=== PATIENT | male | born 1950 | race Caucasian/White ===

== ENCOUNTER 2019-03-17 08:55 | Emergency (ER) | payer MEDICARE, OTHER ==
[~2019-03-17] VITALS: Ht 177.8 cm; Wt 88.5 kg
--- OUTSIDE RECORDS SUMMARY | ~2019-03-17 | XMS | Encounter Summary ---
Demographics + + + | Address | [address] | | | [place] [address] | + + + | Home Phone | | + + + | Preferred Language | Unknown | + + + | Marital Status | | + + + | Restorationist Affiliation | [id number] | + + + | Race | Unknown | + + + | Ethnic Group | Unknown | + + + Author + + + | Author | [facility] | | | and [place] | + + + | Organization | [facility] | | | and [place] | + + + | Address | Unknown | + + + | Phone | Unavailable | + + + Support + + +---------+ + | Name | Relationship | Address | Phone | + + +---------+ + | Yonatan Foss | ECON | Unknown | | + + +---------+ + | Kayli Foss | ECON | Unknown | | + + +---------+ + Care Team Providers + +------+ + | Care Extractor Filler Name | Role | Phone | + +------+ + | Jose Segal MD | PCP | | + +------+ + Reason for Visit + + + | Reason | Comments | + + + | Colonoscopy | prep instructions revised | + + + Encounter Details +--------+ + + + + | Date | Type | Department | Care Team | Description | +--------+ + + + + | 02/20/ | Telephone | [facility] | Oswaldo Streeter MD | Colonoscopy (prep | | 2019 | | GASTROENTEROLOGY | [address] [facility] | instructions | | | | [address] [facility] | [place] [address] | revised) | | | | [address] [place], [place] | [place] [address] | | | | | [address] | [phone] | | | | | [phone] | | | +--------+ + + + + Social History + +-------+ +--------+------+ | Tobacco Use | Types | Packs/Day | Years | Date | | | | | Used | | + +-------+ +--------+------+ | Never Smoker | | | | | + +-------+ +--------+------+ + +---+---+---+ | Smokeless Tobacco: | | | | | Never Used | | | | + +---+---+---+ + + +---------+ + | Alcohol Use | Drinks/We | oz/Week | Comments | | | ek | | | + + +---------+ + | No | | | | + + +---------+ + + + + | Sex Assigned at | Date Recorded | | | | + + + | Not on file | | + + + + + + + | Job Start Date | Occupation | Industry | + + + + | Not on file | Not on file | Not on file | + + + + + + + + | Travel History | Travel Start | Travel End | + + + + + + | No recent travel history available. | + + documented as of this encounter Plan of Treatment Not on filedocumented as of this encounter Visit Diagnoses Not on filedocumented in this encounter"
--- OUTSIDE RECORDS SUMMARY | ~2019-03-17 | XMS | Encounter Summary ---
Demographics + + + | [address] | [address] | | | [place] [address] | + + + | Home Phone | | + + + | Preferred Language | Unknown | + + + | Marital Status | Single | + + + | Anabaptist Affiliation | Unknown | + + + | Race | White | + + + | Ethnic Group | Not or | + + + Author + + + | Author | [facility] | + + + | Organization | [facility] | + + + | Address | Unknown | + + + | Phone | Unavailable | + + + Support + + +---------+ + | Name | Relationship | Address | Phone | + + +---------+ + | Kayli Lundy | ECON | Unknown | | + + +---------+ + Care Team Providers + +------+ + | Care Battery Recharger Name | Role | Phone | + +------+ + | No Pcp Per Patient | PCP | Unavailable | + +------+ + Reason for Visit PROC - Dept/Practice Procedure (Routine) +--------+--------+ + + + + | Status | Reason | Specialty | Diagnoses / | Referred By | Referred To | | | | | Procedures | Contact | Contact | +--------+--------+ + + + + | Closed | | Gastroenterol | Diagnoses | [place], | [facility] End[facility] | | | | ogy | GERD | Christopher | [facility] [address] | | | | | (gastroesoph | MD Cassius | [address] | | | | | ageal reflux | [address] | Mailcode: | | | | | disease) | [address] | [facility] | | | | | [facility] | [place], [place] | [facility] | | | | | esophagus | [address] | and Healing, | | | | | GERD and | Phone: | [address] | | | | | [facility] | [phone] | [facility] [place] | | | | | Procedures | Fax: | [address] | | | | | CONSULT TO | [phone] | Phone: | | | | | GENERAL | | [phone] | | | | | SURGERY [place] | | Fax: | | | | | ESOPHAGEAL | | [phone] | | | | | MOTILITY | | | | | | | STUDY | | | | | | | W/INTERP AND | | | | | | | REPORT | | | +--------+--------+ + + + + Encounter Details +--------+ + + + + | Date | Type | Department | Care Team | Description | +--------+ + + + + | 07/20/ | Hospital | Endoscopic | Nurse, [address] | | | 2013 | Encounter | Procedural Unit at | [facility] | | | | | [facility] | Road [place], [place] | | | | | [address] | [address] | | | | | Mailcode: [facility] | | | | | | [facility] | | | | | | and Healing, | | | | | | [address] | | | | | | [place], [place] | | | | | | [address] | | | | | | [phone] | | | +--------+ + + + + Social History + +-------+ +--------+------+ | Tobacco Use | Types | Packs/Day | Years | Date | | | | | Used | | + +-------+ +--------+------+ | Unknown If Ever | | | | | | Smoked | | | | | + +-------+ +--------+------+ + + +---------+ + | Alcohol Use | Drinks/Week | oz/Week | Comments | + + +---------+ + | No [...] + + documented as of this encounter Medications at Time of Discharge + + + +---------+--------+ + | Medication | Sig | Dispensed | Refills | Start | End Date | | | | | | Date | | + + + +---------+--------+ + | aspirin 325 mg | Take 325 mg by mouth | | 0 | | | | oral tablet | once daily. | | | | | + + + +---------+--------+ + | diphenhydrAMINE 25 | Take 25 mg by mouth | | 0 | | | | mg oral capsule | every six hours as | | | | | | | needed. | | | | | + + + +---------+--------+ + documented as of this encounter Plan of Treatment Not on filedocumented as of this encounter Procedures + +--------+ + + + | Procedure Name | Priori | Date/Time | Associated Diagnosis | Comments | | | ty | | | | + +--------+ + + + | ESOPHAGEAL MOTILITY | | 07/20/2014 | | Results for this | | | | 12:00 AM | | procedure are in the | | | | PDT | | results section. | + +--------+ + + + documented in this encounter Results ESOPHAGEAL MOTILITY (07/20/2014 12:00 AM PDT) + + + | Narrative | Performed At | + + + | | | | | | + + + + + | Procedure Note | + + | Cas Faculty - 07/20/2014 1:41 PM PDT | + + documented in this encounter Visit Diagnoses Not on filedocumented in this encounter Administered Medications + +--------+ +------+------+------+ | Medication Order | MAR | Action | Dose | Rate | Site | | | Action | Date | | | | + +--------+ +------+------+------+ | lidocaine (XYLOCAINE) 2 % gel | Given | 07/20/20 | 2 mL | | | | 1 dose, Starting Wed07/20/14 at | | 14 10:32 | | | | | 0843, Until Wed07/20/14 at 1032 | | AM PDT | | | | + +--------+ +------+------+------+ +---+---+ | | | +---+---+ + +-------+ +---+---+---+ | lidocaine (XYLOCAINE) 2 % gel | Given | 07/20/20 | | | | | 1 dose, Starting Wed07/20/14 at | | 14 10:32 | | | | | 0938, Until Wed07/20/14 at 1032 | | AM PDT | | | | + +-------+ +---+---+---+ +---+---+ | | | +---+---+ documented in this encounter"
--- OUTSIDE RECORDS SUMMARY | ~2019-03-17 | XMS | Encounter Summary ---
Demographics + + + | Address | [address] | | | [place] [address] | + + + | Home Phone | | + + + | Preferred Language | Unknown | + + + | Marital Status | | + + + | Yarsanism Affiliation | 1077 | + + + | Race | Unknown | + + + | Ethnic Group | Unknown | + + + Author + + + | Author | [facility] | | | and [place] | + + + | Organization | [facility] | | | and [place] | + + + | Address | Unknown | + + + | Phone | Unavailable | + + + Support + + +---------+ + | Name | Relationship | Address | Phone | + + +---------+ + | Yonatan Foss | ECON | Unknown | | + + +---------+ + | PipoKayli | ECON | Unknown | | + + +---------+ + Care Team Providers + +------+ + | Care Director Service Name | Role | Phone | + +------+ + | Jose Segal MD | PCP | | + +------+ + Reason for Visit Auth/Cert +--------+--------+ + + + + | Status | Reason | Specialty | Diagnoses / | Referred By | Referred To | | | | | Procedures | Contact | Contact | +--------+--------+ + + + + | | | | Diagnoses | | Ferdinand, | | | | | | | Oswaldo MD | | | | | Gastroesopha | | [address] | | | | | geal reflux | | [address] | | | | | disease, | | [place] [address] | | | | | esophagitis | | [place], | | | | | presence not | | [place] [address] | | | | | specified | | Phone: | | | | | Rectal | | [phone] | | | | | bleeding | | Fax: | | | | | Hematemesis, | | [phone] | | | | | presence of | | | | | | | nausea not | | | | | | | specified | | | | | | | Pacemaker | | | | | | | Procedures | | | | | | | CO | | | | | | | ESOPHAGOGAST | | | | | | | RODUODENOSCO | | | | | | | PY TRANSORAL | | | | | | | DIAGNOSTIC | | | | | | | CO EGD | | | | | | | TRANSORAL | | | | | | | BIOPSY | | | | | | | SINGLE/MULTI | | | | | | | PLE CO | | | | | | | COLONOSCOPY | | | | | | | FLX DX | | | | | | | W/COLLJ SPEC | | | | | | | WHEN PFRMD | | | | | | | CO | | | | | | | COLONOSCOPY | | | | | | | W/BIOPSY | | | | | | | SINGLE/MULTI | | | | | | | PLE CO | | | | | | | COLSC FLX | | | | | | | W/RMVL OF | | | | | | | TUMOR POLYP | | | | | | | LESION SNARE | | | | | | | TQ CO | | | | | | | ANESTHESIA | | | | | | | COMBINED | | | | | | | UPPER&LOWER | | | | | | | GI | | | | | | | ENDOSCOPIC | | | | | | | PX EGD | | | | | | | COLONOSCOPY | | | +--------+--------+ + + + + Encounter Details +--------+---------+ + + + | Date | Type | Department | Care Team | Description | +--------+---------+ + + + | 02/21/ | Surgery | [facility] | | EGD | | 2019 | | [facility] | | | | | | [address] | | | | | | [place] | | | | | | [address] | | | | | | [phone] | | | +--------+---------+ + + + Social History + +-------+ [...] + + documented as of this encounter Last Filed Vital Signs + + + + | Vital Sign | Reading | Time Taken | + + + + | Blood Pressure | 144/83 | 02/21/2019 1615 PDT | + + + + | Pulse | 59 | 02/21/2019 1615 PDT | + + + + | Temperature | 36.1 C (97 F) | 02/21/20191517 PDT | + + + + | Respiratory Rate | 14 | 02/21/20191517 PDT | + + + + | Oxygen Saturation | 100% | 02/21/20191614 PDT | + + + + | Inhaled Oxygen | - | - | | Concentration | | | + + + + | Weight | 88 kg (194 lb 0.1 | 02/21/2019 1306 PDT | | | oz) | | + + + + | Height | 177.8 cm (5' 10") | 02/21/2019 1306 PDT | + + + + | Body Mass Index | 27.84 | 02/21/2019 1306 PDT | + + + + documented in this encounter Discharge Instructions Instructions Florinda Albert RN - 02/21/2019 Recovery After Procedural Sedation (Adult) You have been given medicine by vein to make you sleep during your procedure. This may have included both a pain medicine and sleeping medicine. Most of the effects have worn off. But you may still have some drowsiness for the next 6 to 8 hours. Home care Follow these guidelines when you get home: For the next 8 hours, you should be watched by a responsible adult. This person should m jaydon sure your condition is not getting worse. Don't drink any alcoholfor the next [address], operate dangerous machinery,make important business or personal decisions , or sign legal documentsduring the next 24 hours. Note: Your healthcare provider may tell you not to take any medicine by mouth for pain or s leep in the next 4 hours. These medicines may react with the medicines you were given in the hospital. This could cause a much stronger response than usual. Follow-up care Follow up with your healthcare provider if you are not alert and back to your usual level o f activity within 12 hours. When to seek medical advice Call your healthcare provider right away if any of these occur: Drowsiness gets worse Weakness or dizziness gets worse Repeated vomiting You can't be awakened Date Last Reviewed: 08/04/201619990410-8758 [employer]. [address] [place] [address], [place] [address]. All righ ts reserved. This information is not intended as a substitute for professional medical care. Always follow your healthcare professional's instructions. documented in this encounter Medications at Time of Discharge + + + +---------+--------+ + | Medication | Sig | Dispensed | Refills | Start | End Date | | | | | | Date | | + + + +---------+--------+ + | acetaminophen | Take 500-1,000 mg by | | 0 | | | | (TYLENOL) 500 mg | mouth every 6 hours | | | | | | tablet | as needed for Pain. | | | | | + + + +---------+--------+ + | diphenhydrAMINE | Take 25 mg by mouth | | 0 | | | | (BENADRYL) 25 MG | every 6 hours as | | | | | | capsule | needed for | | | | | | | Allergies. | | | | | + + + +---------+--------+ + | fexofenadine | Take 180 mg by mouth | | 0 | | | | (GIRISH) 180 mg | Daily as needed. | | | | | | tablet | | | | | | + + + +---------+--------+ + documented as of this encounter Plan of Treatment Not on filedocumented as of this encounter Procedures + +--------+ + + + | Procedure Name | Priori | Date/Time | Associated Diagnosis | Comments | | | ty | | | | + +--------+ + + + | EGD | Routin | 02/21/2019 | | Results for this | | | e | 14:16 PDT | | procedure are in the | | | | | | results section. | + +--------+ + + + | COLONOSCOPY | Routin | 02/21/2019 | | Results for this | | | e | 14:15 PDT | | procedure are in the | | | | | | results section. | + +--------+ + + + | COLONOSCOPY | | 02/21/2019 | Gastroesophageal | | | | | 13:45 PDT | reflux disease, | | | | | | esophagitis presence | | | | | | not specified | | | | | | Rectal bleeding | | | | | | Hematemesis, | | | | | | presence of nausea | | | | | | not specified | | | | | | Pacemaker | | + +--------+ + + + | EGD | | 02/21/2019 | Gastroesophageal | | | | | 13:45 PDT | reflux disease, | | | | | | esophagitis presence | | | | | | not specified | | | | | | Rectal bleeding | | | | | | Hematemesis, | | | | | | presence of nausea | | | | | | not specified | | | | | | Pacemaker | | + +--------+ + + + | SURGICAL PATHOLOGY | Routin | 02/21/2019 | | Results for this | | EXAM | e | 0:00 PDT | | procedure are in the | | | | | | results section. | + +--------+ + + + documented in this encounter Results EGD (02/21/2019 14:16 PDT) + + | Specimen | + + | | + + + + ---+ | Narrative | Performed At | + + ---+ | | [facility] | | GastroenterologyPatient Name: Alex FossProdeniseure Date: 02/21/2019 | [facility] | | 2:16 PMMRN: [id number] #: [id number] of : | | | 8Admit Type: AmbulatoryAge: 68Room: [facility] 01Gender: MaleNote | | | Status: FinalizedAttending MD: Oswaldo Streeter , | | | MDProcedure: Upper GI | | | endoscopyIndications: Heartburn, Suspected esophageal | | | reflux, HematemesisProviders: Oswaldo Streeter MD, | | | Sylvia Galeas RN, Kamini Bonner | | | Whitney, Organic Section Technical Lead, Rigoberto Jones MD (Anesthesia | | | Staff)Referring | | | MD: Jose Segal MD (Referring | | | MD)Medicines: Monitored Anesthesia | | | CareComplications: No immediate | | | complications.Procedure: Pre-Anesthesia Assessment: - | | | Prior to the procedure, a History and Physical was performed, and | | | patient medications and allergies were reviewed. The patient | | | is competent. The risks and benefits of the procedure and the | | | sedation options and risks were discussed with the patient. | | | All questions were answered and informed consent was | | | obtained. Patient identification and proposed procedure were | | | verified by the physician, the nurse, the anesthesiologist | | | and the radiation therapy technician in the pre-procedure area in the procedure | | | room. Mental Status Examination: alert and oriented. Airway | | | Examination: normal oropharyngeal airway and neck mobility. | | | Respiratory Examination: clear to auscultation. CV | | | Examination: normal. Prophylactic Antibiotics: The patient | | | does not require prophylactic antibiotics. Prior | | | Anticoagulants: The patient has taken no previous anticoagulant or | | | antiplatelet agents. ASA Grade Assessment: III - A patient | | | with severe systemic disease. After reviewing the risks and | | | benefits, the patient was deemed in satisfactory condition to | | | undergo the procedure. The anesthesia plan was to use | | | monitored anesthesia care (MAC). Immediately prior to | | | administration of medications, the patient was re-assessed for | | | adequacy to receive sedatives. The heart rate, respiratory | | | rate, oxygen saturations, blood pressure, adequacy of | | | pulmonary ventilation, and response to care were monitored | | | throughout the procedure. The physical status of the patient | | | was re-assessed after the procedure. After obtaining informed | | | consent, the endoscope was passed under direct vision. | | | Throughout the procedure, the patient's blood pressure, pulse, | | | and oxygen saturations were monitored continuously. The | | | Endoscope was introduced through the mouth, and advanced to | | | the third part of duodenum. The upper GI endoscopy was | | | accomplished without difficulty. The patient tolerated the | | | procedure well.Findings: There were esophageal mucosal changes | | | suggestive of long-segment Bishpo's esophagus present in | | | the middle third of the esophagus and in the lower third of | | | the esophagus. The maximum longitudinal extent of these | | | mucosal changes was 15 cm in length. Mucosa was biopsied with a | | | cold forceps for histology. A total of 5 specimen bottles | | | were sent to pathology. Verification of patient | | | identification for the specimen was done by the physician and | | | nurse using the patient's name and date. Estimated | | | blood loss was minimal. A small hiatal hernia was | | | present. Diffuse mildly erythematous mucosa without bleeding | | | was found in the entire examined stomach. Biopsies were taken | | | with a cold forceps for histology. Verification of patient | | | identification for the specimen was done by the physician and | | | nurse using the patient's name and date. Estimated | | | blood loss was minimal. No other significant abnormalities | | | were identified in a careful examination of the | | | stomach. The cardia and gastric fundus were normal on | | | retroflexion. The examined duodenum was normal. Biopsies were | | | taken with a cold forceps for histology. Verification of | | | patient identification for the specimen was done by the | | | physician and nurse using the patient's name and date. | | | Estimated blood loss was minimal.Impression: - Esophageal | | | mucosal changes suggestive of long-segment Bishop's | | | esophagus. Biopsied. - Small hiatal hernia. - | | | Erythematous mucosa in the stomach. Biopsied. - Normal | | | examined duodenum. Biopsied.Recommendation: - Patient has a | | | contact number available for emergencies. The signs and | | | symptoms of potential delayed complications were discussed with the | | | patient. Return to normal activities tomorrow. Written | | | discharge instructions were provided to the patient. | | | - Resume previous diet. - Continue present | | | medications. - Await pathology results. - Repeat upper | | | endoscopy in 4 months for surveillance based on pathology | | | results. - Return to GI clinic PRN. - Follow an | | | antireflux regimen. - Use Prilosec (omeprazole) 20 mg PO BID | | | for 3 months. - The findings and recommendations were | | | discussed with the patient.Oswaldo Streeter MD02/21/2019 2:45:07 PMThis | | | report has been signed electronically.Number of Addenda: 0Note | | | Initiated On: 02/21/2019 2:16 PMScope In: 2:26:35 PMScope Out: 2:40:51 | | | PM [facility], [address] [place] [address] | | | [place] [address] | | | - Follow an antireflux regimen. | | | - Use Prilosec (omeprazole) 20 mg PO BID for 3 months. | | | - The findings and recommendations were discussed with the patient. | | |Oswaldo Streeter MD | | |02/21/2019 2:45:07 PM | | |This report has been signed electronically. | | |Number of Addenda: 0 | | |Note Initiated On: 02/21/2019 2:16 PM | | |Scope In: 2:26:35 PM | | |Scope Out: 2:40:51 PM | | | [facility], [address] [place] [address] | | | [id number] | | + + ---+ + +---------+ + + | Performing | Address | City/State/Zipcode | Phone Number | | Organization | | | | + +---------+ + + | [facility] | | | | + +---------+ + + COLONOSCOPY (02/21/2019 14:15 PDT) + + | Specimen | + + | | + + + + ---+ | Narrative | Performed At | + + ---+ | | [facility] | | GastroenterologyPatient Name: Alex Woodwardkeanu Date: 02/21/2019 | [place] | | 2:15 PMMRN: [id number] #: [id number] of : | | | 8Admit Type: AmbulatoryAge: 68Room: [facility] 01Gender: MaleNote | | | Status: FinalizedAttending MD: Oswaldo Streeter , | | | MDProcedure: ColonoscopyIndications: | | | HematocheziaProviders: Oswaldo Streeter MD, Sylvia | | | Adal, RN, Kamini Olson, | | | Organic Section Technical Lead, Rigoberto Jones MD (Anesthesia | | | Staff)Referring | | | MD: Jose Segal MD (Referring | | | MD)Medicines: Monitored Anesthesia | | | CareComplications: No immediate | | | complications.Procedure: Pre-Anesthesia Assessment: - | | | Prior to the procedure, a History and Physical was performed, and | | | patient medications and allergies were reviewed. The patient | | | is competent. The risks and benefits of the procedure and the | | | sedation options and risks were discussed with the patient. | | | All questions were answered and informed consent was | | | obtained. Patient identification and proposed procedure were | | | verified by the physician, the nurse, the anesthesiologist | | | and the radiation therapy technician in the pre-procedure area in the procedure | | | room. Mental Status Examination: alert and oriented. Airway | | | Examination: normal oropharyngeal airway and neck mobility. | | | Respiratory Examination: clear to auscultation. CV | | | Examination: normal. Prophylactic Antibiotics: The patient | | | does not require prophylactic antibiotics. Prior | | | Anticoagulants: The patient has taken no previous anticoagulant or | | | antiplatelet agents. ASA Grade Assessment: III - A patient | | | with severe systemic disease. After reviewing the risks and | | | benefits, the patient was deemed in satisfactory condition to | | | undergo the procedure. The anesthesia plan was to use | | | monitored anesthesia care (MAC). Immediately prior to | | | administration of medications, the patient was re-assessed for | | | adequacy to receive sedatives. The heart rate, respiratory | | | rate, oxygen saturations, blood pressure, adequacy of | | | pulmonary ventilation, and response to care were monitored | | | throughout the procedure. The physical status of the patient | | | was re-assessed after the procedure. After I obtained informed | | | consent, the scope was passed under direct vision. | | | Throughout the procedure, the patient's blood pressure, pulse, | | | and oxygen saturations were monitored continuously. The | | | Colonoscope was introduced through the anus and advanced to | | | the cecum, identified by appendiceal orifice and ileocecal | | | valve. The colonoscopy was performed without difficulty. The | | | patient tolerated the procedure well. The quality of the | | | bowel preparation was adequate to identify polyps 6 mm and | | | larger in size.Findings: The perianal and digital rectal | | | examinations were normal. Multiple small and large-mouthed | | | diverticula were found in the entire colon. A 3 mm | | | polyp was found in the cecum. The polyp was sessile. The polyp | | | was removed with a cold biopsy forceps. Resection and | | | retrieval were complete. Verification of patient | | | identification for the specimen was done by the physician and | | | nurse using the patient's name and date. Estimated | | | blood loss was minimal. The exam was otherwise normal | | | throughout the examined colon. Non-bleeding internal | | | hemorrhoids were found during retroflexion. The hemorrhoids | | | were mild and Grade I (internal hemorrhoids that do not | | | prolapse). No additional abnormalities were found on | | | retroflexion. A scattered area of mild melanosis was found in | | | the entire colon.Impression: - Diverticulosis in the entire | | | examined colon. - One 3 mm polyp in the cecum, removed with a | | | cold biopsy forceps. Resected and retrieved. - | | | Non-bleeding internal hemorrhoids.Recommendation: - Patient | | | has a contact number available for emergencies. The signs and | | | symptoms of potential delayed complications were discussed with the | | | patient. Return to normal activities tomorrow. Written | | | discharge instructions were provided to the patient. | | | - High fiber diet. - Continue present medications. - | | | Await pathology results. - Repeat colonoscopy in 3 years | | | because the bowel preparation was suboptimal. - | | | Return to GI office PRN. - The findings and recommendations | | | were discussed with the patient.Oswaldo Streeter MD02/21/2019 3:10:50 | | | PMThis report has been signed electronically.Number of Addenda: 0Note | | | Initiated On: 02/21/2019 2:15 PMScope Withdrawal Time: 0 hours 13 | | | minutes 23 seconds Scope In: 2:46:05 PMScope Out: 3:05:58 PM | | | [facility], [address] [facility], [place], [place] | | | [address] | | | - Repeat colonoscopy in 3 years because the bowel preparation was | | | suboptimal. | | | - Return to GI office PRN. | | | - The findings and recommendations were discussed with the patient. | | |Oswaldo Streeter MD | | |02/21/2019 3:10:50 PM | | |This report has been signed electronically. | | |Number of Addenda: 0 | | |Note Initiated On: 02/21/2019 2:15 PM | | |Scope Withdrawal Time: 0 hours 13 minutes 23 seconds | | |Scope In: 2:46:05 PM | | |Scope Out: 3:05:58 PM | | | [facility], [address] [facility], [place], [place] | | | [address] | | + + ---+ + +---------+ + + | Performing | Address | City/State/Zipcode | Phone Number | | Organization | | | | + +---------+ + + | [facility] | | | | + +---------+ + + Surgical Pathology Exam (02/21/2019 0:00 PDT) + + | Specimen | + + | | + + + + + | Narrative | Performed At | + + + | SPECIMEN(S): A GASTRIC BIOPSY SPECIMEN(S): B DUODENAL BIOPSY | [facility] | | SPECIMEN(S): C ESOPHAGEAL BIOPSY AT 33CM SPECIMEN(S): D ESOPHAGEAL | [facility] | | BIOPSY 31CM SPECIMEN(S): E ESOPHAGEAL BIOPSY AT 29CM SPECIMEN(S): F | | | ESOPHAGEAL BIOPSY AT27CM SPECIMEN(S): G ESOPHAGEAL BIOPSY AT 25CM | | | SPECIMEN(S): H ESOPHAGEAL BIOPSY AT 23CM SPECIMEN(S): I ESOPHAGEAL | | | BIOPSY AT 21CM SPECIMEN(S): J CECAL POLYP SPECIMEN SOURCE: A. | | | GASTRIC BIOPSY B. DUODENAL BIOPSY C. ESOPHAGEAL BIOPSY AT 33CM D. | | | ESOPHAGEAL BIOPSY 31CM E. ESOPHAGEAL BIOPSY AT 29CM F. ESOPHAGEAL | | | BIOPSY AT27CM G. ESOPHAGEAL BIOPSY AT 25CM H. ESOPHAGEAL BIOPSY AT | | | 23CM I. ESOPHAGEAL BIOPSY AT 21CM J. CECAL POLYP CLINICAL | | | HISTORY: EGD, colonoscopy. K21.9 (gastroesophageal reflux disease | | | without esophagitis) K62.5 (hemorrhage of anus and rectum) K92.9 | | | (disease of digestive system, unspecified) Z95.0 (presence of cardiac | | | pacemaker) Rule out H. pylori. Rule out celiac. Rule out | | | Bishop's dysplasia. MICROSCOPIC DESCRIPTION: Histologic | | | sections of all submitted blocks are examined by light microscopy. | | | These findings, together with the gross examination, support the | | | pathologic diagnosis. A. A Helicobacter pylori immunostain is | | | performed on (A1) with appropriate positive and negative controls and | | | is negative for organisms. J[facility] FINAL PATHOLOGIC DIAGNOSIS: | | | A. Gastric biopsy: - Gastric-type mucosa with focal slight chronic | | | inflammation. - Negative for evidence of Helicobacter organisms | | | on immunostained sections. B. Duodenal biopsy: - Benign | | | duodenal mucosa, negative for specific diagnostic abnormality. C. 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 D. | | | Esophageal biopsy at 31 cm: - Glandular mucosa with goblet cell | | | metaplasia, negative for definite dysplasia. E. Esophageal biopsy | | | at 29 cm: - Glandular mucosa with goblet cell metaplasia, negative | | | for definite dysplasia. F. Esophageal biopsy at 27 cm: | | | - Glandular mucosa with goblet cell metaplasia, negative for | | | definite dysplasia. G. Esophageal biopsy at 25 cm: | | | - Gastroesophageal mucosa with goblet cell metaplasia, negative for | | | definite dysplasia. H. Esophageal biopsy at 23 cm: | | | - Gastroesophageal mucosa with goblet cell metaplasia, negative for | | | definite dysplasia. I. Esophageal biopsy at 21 cm: | | | - Benign esophageal mucosa with a tiny fragment of goblet cell | | | metaplasia, negative for dysplasia. J. Cecal polyp, biopsy: | | | - Tubular adenoma (one fragment). JVR:[facility]:[id number] GROSS | | | DESCRIPTION: Ten specimens are received in ten containers, labeled | | | "GB." A. The specimen, labeled "GB, gastric biopsy," is | | | received in formalin and consists of four pink-jackson soft tissue | | | fragments that measure 0.1-0.4 cm in greatest dimension. The specimen | | | is entirely submitted in cassette (A1). B. The specimen, | | | labeled "GB, duodenal biopsy," is received in formalin and consists of | | | six pink-jackson soft tissue fragments that measure 0.2-0.4 cm in | | | greatest dimension. The specimen is entirely submitted in cassette | | | (B1). C. The specimen, labeled "GB, esophageal biopsy at 33 | | | cm," is received in formalin and consists of two pink-jackson soft tissue | | | fragments that measure 0.2-0.3 cm in greatest dimension. The specimen | | | is entirely submitted in cassette (C1). D. The specimen, | | | labeled "GB, esophageal biopsy at 31 cm," is received in formalin and | | | consists of four pink- jackson soft tissue fragments that measure 0.1-0.2 | | | cm in greatest dimension. The specimen is entirely submitted in | | | cassette (D1). E. The specimen, labeled "GB, esophageal biopsy | | | at 29 cm," is received in formalin and consists of three pink-jackson soft | | | tissue fragments that measure 0.2-0.3 cm in greatest dimension. The | | | specimen is entirely submitted in cassette (E1). F. The | | | specimen, labeled "GB, esophageal biopsy at 27 cm," is received in | | | formalin and consists of four pink-jackson soft tissue fragments that | | | measure 0.2-0.3 cm in greatest dimension. The specimen is entirely | | | submitted in cassette (F1). G. The specimen, labeled "GB, | | | esophageal biopsy at 25 cm," is received in formalin and consists of | | | three pink-jackson soft tissue fragments that measure 0.2-0.3 cm in | | | greatest dimension. The specimen is entirely submitted in cassette | | | (G1). H. The specimen, labeled "GB, esophageal biopsy at 23 | | | cm," is received in formalin and consists of four pink-jackson soft tissue | | | fragments that measure 0.1-0.4 cm in greatest dimension. The specimen | | | is entirely submitted in cassette (H1). I. The specimen, | | | labeled "GB, esophageal biopsy at 21 cm," is received in formalin and | | | consists of four pink-jackson soft tissue fragments that measure 0.1-0.3 | | | cm in greatest dimension. The specimen is entirely submitted in | | | cassette (I1). J. The specimen, labeled "GB, cecal polyp," is | | | received in formalin and consists of one pink-jackson soft tissue fragment | | | that measures 0.2 cm in greatest dimension. The specimen is entirely | | | submitted in cassette (J1). JS (under the direct supervision of a | | | pathologist) The Gross Description was prepared using a voice | | | recognition system. The report was reviewed for accuracy; however, | | | sound-alike word errors, addition and/or deletions may occur. If | | | there is any question about this report, please contact Client | | | Services. PERFORMING LABORATORY: The technical component was | | | performed by [facility] [address] | | | (Electronic Assembly: Susan Jimenez MD; IA# [id number]). [facility] | | [facility] | [address] | | | [address] (Electronic Assembly: Mukul Welsh M.D.). | | | Diagnostician: Mukul Welsh MD Pathologist Electronically | | | Signed 02/24/2019 | | + + + + +---------+ + + | Performing | Address | City/State/Zipcode | Phone Number | | Organization | | | | + +---------+ + + | [facility] | | | | | [facility] | | | | + +---------+ + + documented in this encounter Visit Diagnoses + + | Diagnosis | + + | Gastroesophageal reflux disease, esophagitis presence not specified | + + | Rectal bleeding Hemorrhage of rectum and anus | + + | Hematemesis, presence of nausea not specified | + + | Pacemaker Cardiac pacemaker in situ | + + documented in this encounter Admitting Diagnoses + + | Diagnosis | + + | Gastroesophageal reflux disease, esophagitis presence not specified | + + | Rectal bleeding Hemorrhage of rectum and anus | + + | Hematemesis, presence of nausea not specified | + + | Pacemaker Cardiac pacemaker in situ | + + documented in this encounter Administered Medications + +--------+---------+------+------+------+ | Medication Order | MAR | Action | Dose | Rate | Site | | | Action | Date | | | | + +--------+---------+------+------+------+ + +---+ | albuterol 2.5 mg/3 mL nebulizer | | | solution 2.5 mg 2.5 mg, | | | Nebulization, ONCE PRN, Wheezing, | | | Starting Wed02/21/19 at 1526, For | | | 1 dose, Notify anesthesia if | | | patient is wheezing and does not | | | have a history of asthma or COPD | | | or current smoking., | | | Recovery/Phase I | | + +---+ | | | + +---+ | lactated ringers (LR) infusion | | | at 100 mL/hr, Intravenous, | | | CONTINUOUS, Starting e 02/21/19 | | | at 1345, Pre-op | | + +---+ | | | + +---+ + +---------+ +--------+-------+--------+ | lactated ringers (LR) infusion | New Bag | 02/22/20 | 1,000 | 100 | Right | | at 10-100 mL/hr, Intravenous, | | 19 14:12 | mLs | mL/hr | Arm | | CONTINUOUS, Starting e 02/21/19 | | PDT | | | | | at 1345, TKO., Pre-op | | | | | | + +---------+ +--------+-------+--------+ + +---+ | | | + +---+ | ondansetron (ZOFRAN ODT) | | | disintegrating tablet 4 mg 4 mg, | | | Oral, EVERY 6 HOURS PRN, Nausea, | | | Vomiting, Starting 02/21/19 at | | | 1526, First line agent, | | | Post-op/Phase II | | + +---+ | | | + +---+ | ondansetron (ZOFRAN) injection | | | 4 mg 4 mg, Intravenous, ONCE | | | PRN, Nausea, Starting 02/21/19 | | | at 1526, For 1 dose, | | | Recovery/Phase I | | + +---+ | | | + +---+ | ondansetron (ZOFRAN) injection | | | 4 mg 4 mg, Intravenous, EVERY 6 | | | HOURS PRN, Nausea, Vomiting, | | | Starting 02/21/19 at 1526, | | | First line agent. Use PO option | | | unless NPO status or unable to | | | tolerate., Post-op/Phase II | | + +---+ | | | + +---+ documented in this encounter
--- OUTSIDE RECORDS SUMMARY | ~2019-03-17 | XMS | Encounter Summary ---
Demographics + + + | Address | [address] | | | [place] [address] | + + + | Home Phone | | + + + | Preferred Language | Unknown | + + + | Marital Status | Single | + + + | Evangelical Affiliation | 1077 | + + + | Race | Unknown | + + + | Ethnic Group | Unknown | + + + Author + + + | Author | [facility] | + + + | Organization | [facility] | + + + | Address | [...] Team Providers + +------+ + | Care Chemical Plant Technical Director Name | Role | Phone | + +------+ + | Jose Segal MD | PCP | | + +------+ + Reason for Visit + + + | Reason | Comments | + + + | Pacemaker Check | Remote | + + + Encounter Details +--------+ + + + + | Date | Type | Department | Care Team | Description | +--------+ + + + + | 02/15/ | Documentati | [facility] | Wilver Andrew RN | Pacemaker Check | | 2019 | on Only | [facility] | | (Remote) | | | | [address] | | | | | | [place], [place] | | | | | | [address] | | | | | | [phone] | | | +--------+ + + + + Social History + +-------+ +--------+ + | Tobacco Use | Types | Packs/Day | Years | Date | | | | | Used | | + +-------+ +--------+ + | Former Smoker | | 1 | 1 | Quit: 04/01/1969 | + +-------+ +--------+ + + +---+---+---+ | Smokeless Tobacco: | | | | | Never Used | | | | + +---+---+---+ + + | Comments: pipe smoker | + + + + +---------+ + | Alcohol Use | Drinks/We | oz/Week | Comments | | | ek | | | + + +---------+ + | No | 0 | 0.0 | heavy drinker when he was in the [place], quit | | | Standard | | 1973 | | | drinks or | | | | | | | | | | equivalen | | | | | t | | | + + +---------+ + + + + | Sex Assigned at | Date Recorded | | | | + + + | Not on file | | + + + as of this encounter Progress Notes Wilver Andrew RN - 02/15/2019 8:00 AM PDTFormatting of this note may be different from justa mendoza. PACEMAKER REMOTE INTERROGATION REPORT Name: Alex Foss PCP: JOSE SEGAL : 1950 Primary cardiology provider: Harpreet Chow Primary electrophysiology provider: None Device die cutter diamond: Medtronic Device type: Dual chamber Battery Longevity: 6.5 years. RA Pacin.2% RV Pacin.6% INTERROGATION RESULTS: Please see the full interrogation report attached Known history of atrial flutter or atrial fibrillation: Yes Current antithrombotic therapy including: aspirin Mode switches: None. Ventricular high rate episodes: None. Lead function: Lead impedance and threshold value trends have been reviewed and are accepta ble based on most recent evaluation Follow up: The next scheduled interrogation will be in 3 months via remote transmission. Additional comments: None. IMPRESSION: 1. Normal pacemaker function. 2. No atrial fibrillation/flutter noted. 3. No ventricular high rate episodes were noted. Testing reviewed by: Wilver Andrew RN Associated attestation - Amando Chow MD - 02/16/2019 9:19 AM PDTDevice check reviewed , normal device function. Amando Chow MD in this encounter Plan of Treatment +--------+ + + + + | Date | Type | Specialty | Care Team | Description | +--------+ + + + + | 05/17/ | Documentati | Cardiology | | | | 2018 | on Only | | | | +--------+ + + + + as of this encounter Visit Diagnoses + + | Diagnosis | + + | SSS (sick sinus syndrome) (HCC) - Primary | + + | Sinoatrial node dysfunction | + + | Bradycardia | + + | Other specified cardiac dysrhythmias | + + | Paroxysmal atrial fibrillation (HCC) | + + | Atrial fibrillation | + +"
--- OUTSIDE RECORDS SUMMARY | ~2019-03-17 | XMS | Encounter Summary ---
Demographics + + + | Address | [address] | | | [place] [address] | + + + | Home Phone | | + + + | Preferred Language | Unknown | + + + | Marital Status | | + + + | Advent Affiliation | 1077 | + + + | Race | Unknown | + + + | Ethnic Group | Unknown | + + + Author + + + | Author | [facility] | | | and [place] | + + + | Organization | [facility] | | | and [...] Team Providers + +------+ + | Care Professor Of Journalism Name | Role | Phone | + +------+ + | Jose Segal MD | PCP | | + +------+ + Reason for Visit + + + | Reason | Comments | + + + | Colon Cancer | | | Screening | | + + + | Other | possible egd | + + + Evaluate & Treat (Routine) +--------+--------+ + + + + | Status | Reason | Specialty | Diagnoses / | Referred By | Referred To | | | | | Procedures | Contact | Contact | +--------+--------+ + + + + | Closed | | Gastroenterol | Diagnoses | Philipp, | David, | | | | moriah | Encounter | Jose Regalado, | Gregory Higginbotham MD | | | | | for | MD [address] | [address], | | | | | screening | [address] | [address] | | | | | for | [place], | [place], | | | | | malignant | [place] [address] | [place] [address] | | | | | neoplasm of | Phone: | Phone: | | | | | colon | [phone] | [phone] | | | | | Procedures | Fax: | Fax: | | | | | COLONOSCOPY | [phone] | [phone] | +--------+--------+ + + + + Encounter Details +--------+---------+ + + + | Date | Type | Department | Care Team | Description | +--------+---------+ + + + | 01/26/ | Office | [facility] | Oswaldo Streeter MD | Gastroesophageal | | 2019 | Visit | GASTROENTEROLOGY | [address] [facility] | reflux disease, | | | | [address] [facility] [address] | [address] [place] | esophagitis presence | | | | [address], [place] | [place] [address] | not specified | | | | [address] | [phone] | (Primary Dx); Rectal | | | | [phone] | | bleeding; | | | | | | Hematemesis, | | | | | | presence of nausea | | | | | | not specified; | | | | | | Pacemaker; Chronic | | | | | | abdominal pain | +--------+---------+ + + + Social History [...] + + + | Blood Pressure | 130/84 | 01/26/2019 1522 PDT | + + + + | Pulse | 84 | 01/26/20191521 PDT | + + + + | Temperature | 36.7 C (98 F) | 01/26/20191521 PDT | + + + + | Respiratory Rate | 16 | 01/26/20191521 PDT | + + + + | Oxygen Saturation | 98% | 01/26/20191521 PDT | + + + + | Inhaled Oxygen | - | - | | Concentration | | | + + + + | Weight | 89.9 kg (198 lb 3.1 | 01/26/20191521 PDT | | | oz) | | + + + + | Height | 177.8 cm (5' 10") | 01/26/20191521 PDT | + + + + | Body Mass Index | 28.44 | 01/26/20191521 PDT | + + + + documented in this encounter Plan of Treatment Not on filedocumented as of this encounter Visit Diagnoses + + | Diagnosis | + + | Gastroesophageal reflux disease, esophagitis presence not specified - Primary | + + | Rectal bleeding Hemorrhage of rectum and anus | + + | Hematemesis, presence of nausea not specified | + + | Pacemaker Cardiac pacemaker in situ | + + | Chronic abdominal pain Abdominal pain, unspecified site | + + documented in this encounter
--- OUTSIDE RECORDS SUMMARY | ~2019-03-17 | XMS | Encounter Summary ---
Demographics + + + | Address | [address] | | | [place] [address] | + + + | Home Phone | | + + + | Preferred Language | Unknown | + + + | Marital Status | Single | + + + | Restorationist Affiliation | 1077 | + + + | Race | Unknown | + + + | Ethnic Group | Unknown | + + + Author + + + | Author | [facility] | + + + | Organization | [facility] [facility] | + + + | Address [...] Team Providers + +------+ + | Care Quality Control Head Name | Role | Phone | + [...] + | 02/15/ | Documentati | [facility] [place] | Wilver Andrew RN | Pacemaker Check | | 2019 | on Only | [facility] | | (Remote) | | | | [address] | | | | | | [place], [place] | | | | | | [address] | | | | | | [phone] | | | +--------+ + + + [...] heavy drinker when he was in the [place], quit | | | Standard | | [...] Harpreet Chow Primary electrophysiology provider: None Device quality control tech: Medtronic Device type: Dual chamber Battery Longevity: [...]
--- OUTSIDE RECORDS SUMMARY | ~2019-03-17 | XMS | Clinical Summary ---
Demographics + + + | Address | [address] | | | [place] [address] | + + + | Home Phone | | + + + | Preferred Language | Unknown | + + + | Marital Status | | + + + | Voodoo Affiliation | 1077 | + + + | Race | Unknown | + + + | Ethnic Group | Unknown | + + + Author + + + | Author | [facility] | | | and [place] | + + + | Organization | [facility] | | | and [...] Team Providers + +------+ + | Care Plasterer Helper Name | Role | Phone | + +------+ + | Jose Segal MD | PP | | + +------+ + Allergies + + + + + + | Active Allergy | Reactions | Severity | Noted | Comments | | | | | Date | | + + + + + + | Iodinated Diagnostic | Other (See Comments) | High | 01/04/20 | Reaction: Trouble | | Agents | | | 19 | breathing | + + + + + + | Penicillins | Itching, Rash | Medium | 01/04/20 | | | | | | 19 | | + + + + + + | Shellfish | Swelling | High | 01/27/20 | Lobster/ throat | | | | | 19 | swelling | + + + + + + Medications + + + +---------+------+------+-------+ | Medication | Sig | Dispensed | Refills | Star | End | Statu | | | | | | t | Date | s | | | | | | Date | | | + + + +---------+------+------+-------+ | fexofenadine | Take 180 mg by mouth | | 0 | | | Activ | | (GIRISH) 180 mg | Daily as needed. | | | | | e | | tablet | | | | | | | + + + +---------+------+------+-------+ | diphenhydrAMINE | Take 25 mg by mouth | | 0 | | | Activ | | (BENADRYL) 25 MG | every 6 hours as | | | | | e | | capsule | needed for | | | | | | | | Allergies. | | | | | | + + + +---------+------+------+-------+ | acetaminophen | Take 500-1,000 mg by | | 0 | | | Activ | | (TYLENOL) 500 mg | mouth every 6 hours | | | | | e | | tablet | as needed for Pain. | | | | | | + + + +---------+------+------+-------+ | omeprazole | Take 1 capsule by | 90 | 3 | 05/1 | | Activ | | (PRILOSEC) 20 mg | mouth 2 times daily | capsule | | 0/20 | | e | | capsuleIndications: | (before meals). | | | 19 | | | | Bishop's esophagus | | | | | | | | determined by | | | | | | | | biopsy, Long-segment | | | | | | | | Bishop's | | | | | | | | esophagus, Hiatal | | | | | | | | hernia | | | | | | | + + + +---------+------+------+-------+ | polyethylene | At 8 pm day prior to | 4000 mL | 0 | 04/1 | 05/0 | Disco | | glycol (GOLYTELY) | procedure drink | | | / | 7/20 | ntinu | | 236 g suspension | half of prep 8 oz | | | 19 | 19 | ed | | | every 10 to 20 | | | | | | | | minutes. Drink | | | | | | | | remaining prep at | | | | | | | | 6:30 am the morning | | | | | | | | of procedure. | | | | | | + + + +---------+------+------+-------+ | | | | 0 | 11/2 | 05/0 | Disco | | oxyCODONE-acetaminop | | | | 0/20 | 6/20 | ntinu | | hen (PERCOCET) 5-325 | | | | 18 | 19 | ed | | mg per tablet | | | | | | | + + + +---------+------+------+-------+ Active Problems + + + | Problem | Noted Date | + + + | BPH (benign prostatic hyperplasia) | 02/21/2019 | + + + | Long-segment Bishop's esophagus | 02/21/2019 | + + + + + | Overview: EGD 02/21/2019 | + + + + + | Hypertension | 02/20/2019 | + + + | AF (paroxysmal atrial fibrillation) | 02/20/2019 | + + + | Bladder cancer | 02/20/2019 | + + + + + | Overview: Malignant neoplasm of posterior wall of bladder | + + + + + | Bilateral tinnitus | 02/20/2019 | + + + | Chronic interstitial cystitis | 02/20/2019 | + + + | Diaphragmatic hernia | 02/20/2019 | + + + | Gross hematuria | 02/20/2019 | + + + | Low back pain | 02/20/2019 | + + + | Chronic abdominal pain | 02/17/2019 | + + + | GERD (gastroesophageal reflux disease) | 01/26/2019 | + + + + + | Overview: Added automatically from request for surgery | | [id number] | + + + + + | Rectal bleeding | 01/26/2019 | + + + + + | Overview: Added automatically from request for surgery | | [id number] | + + + + + | Hematemesis, presence of nausea not specified | 01/26/2019 | + + + + + | Overview: Added automatically from request for surgery | | [id number] | + + + + + | Cardiac pacemaker in situ | 01/26/2019 | + + + + + | Overview: 11/05/2015 - Pacemaker Placement | | Andreina Vu Tachy | | Medtronic Tha SALAZAR [id number] | + + + + + | Chronic renal insufficiency, stage 2 (mild) | 02/21/2018 | + + + + + | Overview: GFR: 70's - 80's | + + + + + | Coronary atherosclerosis | 06/09/2017 | + + + + + | Overview: Last Assessment & Plan: No chest pain in over a | | yearHe feel overall improved with lifestyle changesHe will | | continue Amlodipine, MetoprololHe do not want to take Statins- | | even after long discussion about risks, benefits- he would like | | to try some thing natural- I advised him to take Red Rice | | yeast.09/2015- Stress test done for syncope was mildly abnormal | | with small inferior-apical ischemiaE[facility] [place] | | showed normal LV systolic wtyzrjfp06/2016- Cath showed- small and | | branch vessel CAD. 50% mid LAD disease noted- B/l carotid | | dopplers- no significant disease notedAdvised him to continue to | | take ASA 81mg dailyHe will return early in case of worsening | | symptoms or will come to ER.Follow up annually.Mild-moderate | | branch vessel disease, medical treatment | + + + + + | Abnormal cardiovascular stress test | 12/24/2015 | + + + + + | Overview: Last Assessment & Plan: He feel improved s/p PPM- | | improved energy levels, no chest pain, dyspneaStress test done | | for syncope was mildly abnormal with small inferior-apical | | ischemiaEcho done [facility] [place] showed normal LV systolic | | functionB/l carotid dopplers- no significant disease | | notedDiscussed with him about stress test- he is currently | | asymptomatic and feel significantly improved since PPM and would | | like to continue to follow up closely and will consider | | additional cardiology work up if symptomatic. Discussed with him | | about CAD, presentations, management options including coronary | | angiogramLipid profile prior to next visit.Advised him to | | continue to take ASA 81mg daily | + + + + + | Bradycardia | 10/03/2015 | + + + Encounters +--------+ + + + + | Date | Type | Specialty | Care Team | Description | +--------+ + + + + | 03/16/ | Telephone | | Oswaldo Streeter MD | Results (colon) | | 2019 | | | | | +--------+ + + + + | 02/24/ | Orders Only | | Oswaldo Streeter MD | Bishop's esophagus | | 2018 | | | | determined by biopsy | | | | | | (Primary Dx); | | | | | | Long-segment | | | | | | Bishop's esophagus; | | | | | | Hiatal hernia | +--------+ + + + + | 02/21/ | Anesthesia | | Rigoberto Jones | | | 2018 | Event | | MD Adrianna | | +--------+ + + + + | 02/21/ | Surgery | | | EGD | | 2019 | | | | | +--------+ + + + + | 02/21/ | Hospital | | Oswaldo Streeter MD | Gastroesophageal | | 2018 | Encounter | | | reflux disease, | | | | | | esophagitis presence | | | | | | not specified; | | | | | | Rectal bleeding; | | | | | | Hematemesis, | | | | | | presence of nausea | | | | | | not specified; | | | | | | Pacemaker | +--------+ + + + + | 02/20/ | Telephone | | Oswaldo Streeter MD | Colonoscopy (prep | | 2018 | | | | instructions | | | | | | revised) | +--------+ + + + + | 01/26/ | Office | | Oswaldo Streeter MD | Gastroesophageal | | 2018 | Visit | | | reflux disease, | | | | | | esophagitis presence | | | | | | not specified | | | | | | (Primary Dx); Rectal | | | | | | bleeding; | | | | | | Hematemesis, | | | | | | presence of nausea | | | | | | not specified; | | | | | | Pacemaker; Chronic | | | | | | abdominal pain | +--------+ + + + + | 01/04/ | Abstract | | Provider, | | | 2018 | | | MD Maximo | | +--------+ + + + + | 01/03/ | Telephone | | Oswaldo Streeter MD | Procedure | | 2018 | | | | | +--------+ + + + + from Last 3 Months Family History + + +------+ + | Medical History | Relation | Name | Comments | + + +------+ + | Cancer | Brother | | Bladder | + + +------+ + | Heart disease | Brother | | | + + +------+ + | Other (see comment) | Brother | | SP tube | + + +------+ + | Other cancer | Brother | | Skin Cancer | + + +------+ + | Cancer | Father | | | + + +------+ + | Colon cancer | Mother | | | + + +------+ + | Diabetes | Sister | | | + + +------+ + + +------+ + + | Relation | Name | Status | Comments | + +------+ + + | Brother | | | | + +------+ + + | Father | | | | + +------+ + + | Mother | | | | + +------+ + + | Sister | | | | + +------+ + + Social History + +-------+ +--------+------+ [...] recent travel history available. | + + Last Filed Vital Signs + + + + | Vital Sign | Reading | Time Taken | + + + + | Blood Pressure | 144/83 | 02/21/20191614 PDT | + + + + | Pulse | 59 | 02/21/20191614 PDT | + + + [...] | 88 kg (194 lb 0.1 | 02/21/20191305 PDT | | | oz) | | + + + + | Height | 177.8 cm (5' 10") | 02/21/20191305 PDT | + + + + | Body Mass Index | 27.84 | 02/21/20191305 PDT | + + + + Plan of Treatment + + + + + | Health Maintenance | Due Date | Last Done | Comments | + + + + + | Hepatitis C | | | | | Screening | 8 | | | + + + + + | Vaccine: | | | | | Dtap/Tdap/Td (1 - | 7 | | | | Tdap) | | | | + + + + + | Vaccine: Zoster (1 | | | | | of 2) | 8 | | | + + + + + | Vaccine: | | | | | Pneumococcal 65+ | 3 | | | | High/Highest Risk (1 | | | | | of 2 - PCV13) | | | | + + + + + | Adult Annual | | | | | Wellness Visit | 9 | | | + + + + + | Statin Therapy | | | | | (optimal intensity) | 9 | | | + + + + + | Vaccine: Influenza | | 11/27/2015, 07/27/2015 | | | (Season Ended) | 9 | | | + + + + + | Colorectal Cancer | | 02/21/2019, 10/18/1988 | | | Screening | 2 | | | | (Colonoscopy) | | | | + + + + + Procedures + +--------+ + + + | [...] section. | + +--------+ + + + from Last 3 Months Results EGD (02/21/2019 14:16 PDT) + + | Specimen | + + | | + + + + ---+ | Narrative | Performed At | + + ---+ | | [facility] | | GastroenterologyPatient Name: Alex Casillas Date: 02/21/2019 | [facility] | | 2:16 PMMRN: [id number] #: [id number] of : | | | 8Admit Type: AmbulatoryAge: 68Room: [facility] 01Gender: MaleNote | | | Status: FinalizedAttending MD: Oswaldo Streeter , | | | MDProcedure: Upper GI | | | endoscopyIndications: Heartburn, Suspected esophageal | | | reflux, HematemesisProviders: Oswaldo Streeter MD, | | | Sylvia Galeas RN, Kamini Bonner | | | Whitney, Housing Assistant, Rigoberto Jones MD (Anesthesia | | | [...] the anesthesiologist | | | and the windows server support technician in the pre-procedure area in the [...] changes | | | suggestive of long-segment Bishop's esophagus present in | | | the [...] PMScope Out: 2:40:51 | | | [facility], [address] [place] [address] | | | [place] [address] | | | - Follow an antireflux [...] |Scope Out: 2:40:51 PM | | | [facility], [address] [place] [address] | | | [id number] | | + + ---+ + +---------+ [...] | [facility] | | GastroenterologyPatient Name: Alex Casillas Date: 02/21/2019 | [place] | | 2:15 PMMRN: [id number] #: [id number] of : | | | 1950dmit Type: AmbulatoryAge: 68Room: [facility] 01Gender: MaleNote | | | Status: FinalizedAttending MD: Oswaldo Streeter , | | | MDProcedure: ColonoscopyIndications: | | | HematocheziaProviders: Oswaldo Streetre MD, Sylvia | | | CHADWICK Galeas, Kamini Olson, | | | Housing Assistant, Rigoberto Jones MD (Anesthesia | | | [...] the anesthesiologist | | | and the windows server support technician in the pre-procedure area in the [...] PMScope Out: 3:05:58 PM | | | [facility], [address] [place] [address] | | | [id number] | | | - Repeat colonoscopy in [...] |Scope Out: 3:05:58 PM | | | [facility], [address] [place] [address] | | | [id number] | | + + ---+ + +---------+ [...] | | | is negative for organisms. [facility] FINAL PATHOLOGIC DIAGNOSIS: | | | A. [...] | | - Tubular adenoma (one fragment). J[facility]:C2NR GROSS | | | DESCRIPTION: Ten specimens [...] component was | | | performed by [facility], [address] [place] [id number] | | | (Group Teacher: Susan Jimenez MD; IA# [id number]). Professional | | | [facility] | [facility], [address] [place] [address] | | | [id number] (Group Teacher: Mukul Welsh M.D.). | | | Diagnostician: Mukul Welsh MD Pathologist Electronically | | | Signed 02/24/2019 | | + + + + +---------+ + + | Performing | Address | City/State/Zipcode | Phone Number | | Organization | | | | + +---------+ + + | [facility] | | | | | [facility] | | | | + +---------+ + + from Last 3 Months Insurance + +--------+ +--------+ +---------+--------+ | Payer | Benefi | Subscriber | Effect | Phone | Address | Type | | | t Plan | ID | west | | | | | | / | | Dates | | | | | | Group | | | | | | + +--------+ +--------+ +---------+--------+ | [employer] | [employer] | [id number] | 01/18/20 | | | Indemn | | | NS | | 19-Pre | | | ity | | | CHOICE | | sent | | | | + +--------+ +--------+ +---------+--------+ | MEDICARE | MEDICA | [id number] | 04/17/20 | [phone] | | Medica | | | RE | | 15-Pre | 5 | | re | | | PART A | | sent | | | | | | AND B | | | | | | + +--------+ +--------+ +---------+--------+ | [employer] | STATE | [id number] | 10/17/ | [phone] | | Indemn | | | FARM | 7 | 2015-P | 2 | | ity | | | MDCR | | resent | | | | | | SUPPL | | | | | | + +--------+ +--------+ +---------+--------+ + +--------+ +--------+ + + | Guarantor Name | Accoun | Relation to | Date | Phone | Billing Address | | | t Type | Patient | of | | | | | | | | | | + +--------+ +--------+ + + | Alex Foss | Person | Self [birth year] | [address] | | | al/Fam | | 1950 | [phone] | [place] | | | [place] | | | 1 (Home) | [address] | + +--------+ +--------+ + + Advance Directives Patient has advance care planning documents on file. For more information, please contact:[facility] [place] [address]
--- OUTSIDE RECORDS SUMMARY | ~2019-03-17 | XMS | Encounter Summary ---
Demographics + + + | Address | [address] | | | [place] [address] | + + + | Home Phone | | + + + | Preferred Language | Unknown | + + + | Marital Status | | + + + | Jainism Affiliation | 1077 | + + + | Race | Unknown | + + + | Ethnic Group | Unknown | + + + Author + + + | Author | [facility] | | | and [place] | + + + | Organization | [facility] | | [...] Team Providers + +------+ + | Care Electric Powerline Examiner Name | Role | Phone | + +------+ + | Jose Segal MD | PCP | | + +------+ + Reason for Visit + + + | Reason | Comments | + + + | Procedure | | + + + Encounter Details +--------+ + + + + | Date | Type | Department | Care Team | Description | +--------+ + + + + | 01/03/ | Telephone | [facility] [place] | Oswaldo Streeter MD | Procedure | | 2019 | | GASTROENTEROLOGY | [address] | | | | | [address] [place] | [place] [address] | | | | | [address] | [place] [address] | | | | | [address] | [phone] | | | | | [phone] | | | +--------+ + + + + Social History + +-------+ +--------+------+ | Tobacco Use | Types | Packs/Day | Years | Date | | | | | Used | | + +-------+ +--------+------+ | Never Assessed | | | | | + +-------+ +--------+------+ + + + | Sex Assigned at [...]
--- OUTSIDE RECORDS SUMMARY | ~2019-03-17 | XMS | Encounter Summary ---
Demographics + + + | Address | [address] | | | [place] [address] | + + + | Home Phone | | + + + | Preferred Language | Unknown | + + + | Marital Status | Single | + + + | Restoration Affiliation | Unknown | + + + | Race | White | + + + | Ethnic Group | Not or | + + + Author + + + | Author | [facility] | + + + | Organization | [facility] | + + + | Address | Unknown | + + + | Phone | Unavailable | + + + Support + + +---------+ + | Name | Relationship | Address | Phone | + + +---------+ + | Kayli Lundy | ECON | Unknown | | + + +---------+ + Care Team Providers + +------+ + | Care Student Services Dean Name | Role | Phone | + +------+ + | No Pcp Per Patient | PCP | Unavailable | + +------+ + Reason for Visit + + + | Reason | Comments | + + + | Referral To Surgery | | | - General | | + + + Encounter Details +--------+ + + + + | Date | Type | Department | Care Team | Description | +--------+ + + + + | 06/28/ | Abstract | [facility] | Clinic, Surgery | Referral To Surgery | | 2013 | | [facility] at [facility] | | - General | | | | [facility] | | | | | | Mailcode: [facility] | | | [facility] | | | | | [facility], [address] | | | | | | [place], [place] | | | | | | [address] | | | | | | [phone] | | | +--------+ + + + [...]
--- OUTSIDE RECORDS SUMMARY | ~2019-03-17 | XMS | Clinical Summary ---
Demographics + + + | [address] | [address] | | | [place] [address] | + + + | Home Phone | | + + + | Preferred Language | Unknown | + + + | Marital Status | Single | + + + | Jewish Affiliation | Unknown | + + + | Race | White | + + + | Ethnic Group | Not or | + + + Author + + + | Author | NON REVENUE LOCATIONS | + + + | Organization | NON REVENUE LOCATIONS | + + + | Address | Unknown | + + + | Phone | Unavailable | + + + Support + + +---------+ + | Name | Relationship | Address | Phone | + + +---------+ + | Kayli Lundy | ECON | Unknown | | + + +---------+ + Care Team Providers + +------+ + | Care Wilderness Guide Name | Role | Phone | + +------+ + | No Pcp Per Patient | PP | Unavailable | + +------+ + Source Comments ADRIANE is fully live on both [facility] Amb[facility] and [facility] InPatient.[facility] Allergies No Known Allergies Medications + + + +---------+------+------+-------+ | Medication | Sig | Dispensed | Refills | Star | End | Statu | | | | | | t | Date | s | | | | | | Date | | | + + + +---------+------+------+-------+ | diphenhydrAMINE 25 | Take 25 mg by mouth | | 0 | | | Activ | | mg oral capsule | every six hours as | | | | | e | | | needed. | | | | | | + + + +---------+------+------+-------+ | aspirin 325 mg | Take 325 mg by mouth | | 0 | | | Activ | | oral tablet | once daily. | | | | | e | + + + +---------+------+------+-------+ Active Problems Not on file Social History + +-------+ +--------+------+ | Tobacco [...] recent travel history available. | + + Plan of Treatment + + + + + | Health Maintenance | Due Date | Last Done | Comments | + + + + + | Pneumococcal (Adult) | | | | | (1 of 2 - PCV13) | 3 | | | + + + + + | Influenza (Flu) | | | | | vaccination (Season | 9 | | | | Ended) | | | | + + + + + Results Not on filefrom Last 3 Months Insurance + +--------+ +--------+ + +--------+ | Payer | Benefi | Subscriber | Effect | Phone | Address | Type | | | t Plan | ID | west | | | | | | / | | Dates | | | | | | Group | | | | | | + +--------+ +--------+ + +--------+ | [place] [place] | xxxxxxxxx | Effect | [phone] | [address] | Agency | | ADMINISTRATION | COMMUN | | west | [phone] | | | | [place] | | for | | [place], | | | | [place] | | all | | [place] [address] | | | | RCE | | dates | | | | + +--------+ +--------+ + +--------+ + +--------+ +--------+ + + | Guarantor Name | Accoun | Relation to | Date | Phone | Billing Address | | | t Type | Patient | of | | | | | | | | | | + +--------+ +--------+ + + | Alex Foss | Person | Self [birth year] | [address] | | | al/[place] | | 1950 | [phone] | [place] [address] | | | ken | | | 1 (Home) | | + +--------+ +--------+ + + | Alex Foss | [place] | Self | [birth year] | [address] | | | [place] | | 1950 | [phone] | [place] [address] | | | red | | | 1 (Home) | | + +--------+ +--------+ + +"
--- OUTSIDE RECORDS SUMMARY | ~2019-03-17 | XMS | Encounter Summary ---
Demographics + + + | Address | [address] | | | [place] [address] | + + + | Home Phone | | + + + | Preferred Language | Unknown | + + + | Marital Status | | + + + | Holiness Affiliation | 1077 | + + + | Race | Unknown | + + + | Ethnic Group | Unknown | + + + Author + + + | Author | [facility] | | | and [place] | + + + | Organization | [facility] | | | and [...] Team Providers + +------+ + | Care Scene Painter Name | Role | Phone | + +------+ + | Jose Segal MD | PCP | | + +------+ + Encounter Details +--------+ + + + + | Date | Type | Department | Care Team | Description | +--------+ + + + + | 01/04/ | Abstract | [facility] | Provider, | | | 2018 | | GASTROENTEROLOGY | MD [address] | | | | | [address] [place] | [place]. | | | | | [address] | [place] [address] | | | | | [address] | | | | | | [phone] | | | +--------+ + + + [...] | + +--------+ + + + | EXTERNAL LAB: KENDELL | Routin | 12/01/2018 | | Results for this | | | e | | | procedure are in the | | | | | | results section. | + +--------+ + + + | EXTERNAL LAB: | Routin | 12/01/2018 | | Results for this | | GLUCOSE | e | | | procedure are in the | | | | | | results section. | + +--------+ + + + | EXTERNAL LAB: PSA | Routin | 12/01/2018 | | Results for this | | | e | | | procedure are in the | | | | | | results section. | + +--------+ + + + | EXTERNAL LAB: ALT | Routin | 12/01/2018 | | Results for this | | | e | | | procedure are in the | | | | | | results section. | + +--------+ + + + | EXTERNAL LAB: AST | Routin | 12/01/2018 | | Results for this | | | e | | | procedure are in the | | | | | | results section. | + +--------+ + + + | EXTERNAL LAB: | Routin | 12/01/2018 | | Results for this | | ALKALINE PHOSPHATASE | e | | | procedure are in the | | | | | | results section. | + +--------+ + + + | EXTERNAL LAB: | Routin | 12/01/2018 | | Results for this | | ALBUMIN | e | | | procedure are in the | | | | | | results section. | + +--------+ + + + | EXTERNAL LAB: | Routin | 12/01/2018 | | Results for this | | PROTEIN, TOTAL | e | | | procedure are in the | | | | | | results section. | + +--------+ + + + | EXTERNAL LAB: | Routin | 12/01/2018 | | Results for this | | CALCIUM | e | | | procedure are in the | | | | | | results section. | + +--------+ + + + | EXTERNAL LAB: CARBON | Routin | 12/01/2018 | | Results for this | | DIOXIDE | e | | | procedure are in the | | | | | | results section. | + +--------+ + + + | EXTERNAL LAB: | Routin | 12/01/2018 | | Results for this | | CHLORIDE | e | | | procedure are in the | | | | | | results section. | + +--------+ + + + | EXTERNAL LAB: | Routin | 12/01/2018 | | Results for this | | POTASSIUM | e | | | procedure are in the | | | | | | results section. | + +--------+ + + + | EXTERNAL LAB: SODIUM | Routin | 12/01/2018 | | Results for this | | | e | | | procedure are in the | | | | | | results section. | + +--------+ + + + | EXTERNAL LAB: CBC | Routin | 12/01/2018 | | Results for this | | | e | | | procedure are in the | | | | | | results section. | + +--------+ + + + | EXTERNAL LAB: | Routin | 12/01/2018 | | Results for this | | TRIGLYCERIDES | e | | | procedure are in the | | | | | | results section. | + +--------+ + + + | EXTERNAL LAB: | Routin | 12/01/2018 | | Results for this | | CHOLESTEROL, HDL | e | | | procedure are in the | | | | | | results section. | + +--------+ + + + | EXTERNAL LAB: | Routin | 12/01/2018 | | Results for this | | CHOLESTEROL, TOTAL | e | | | procedure are in the | | | | | | results section. | + +--------+ + + + | EXTERNAL LAB: | Routin | 12/01/2018 | | Results for this | | CHOLESTEROL, LDL | e | | | procedure are in the | | | | | | results section. | + +--------+ + + + | EXTERNAL LAB: EGFR | Routin | 12/01/2018 | | Results for this | | | e | | | procedure are in the | | | | | | results section. | + +--------+ + + + | EXTERNAL LAB: | Routin | 12/01/2018 | | Results for this | | CREATININE | e | | | procedure are in the | | | | | | results section. | + +--------+ + + + | LIPID PANEL | Routin | 12/01/2018 | | Results for this | | | e | | | procedure are in the | | | | | | results section. | + +--------+ + + + | CBC WITH | Routin | 12/01/2018 | | Results for this | | DIFFERENTIAL | e | | | procedure are in the | | | | | | results section. | + +--------+ + + + | COMPREHENSIVE | Routin | 12/01/2018 | | Results for this | | METABOLIC PANEL | e | | | procedure are in the | | | | | | results section. | + +--------+ + + + documented in this encounter Results CBC with Differential (12/01/2018) + +-------+ + + + | Component | Value | Ref Range | Performed | Pathologist | | | | | At | Signature | + +-------+ + + + | MCH | 30.0 | 26.0 - 33.0 pg | | | + +-------+ + + + | MCHC | 33.0 | 31.0 - 37.0 | | | | | | g/dL | | | + +-------+ + + + | % Basophils | 1.0 | 0.0 - 2.0 % | | | + +-------+ + + + + + | Specimen | + + | Blood | + + Comprehensive Metabolic Panel (12/01/2018) + +-------+ + + + | Component | Value | Ref Range | Performed | Pathologist | | | | | At | Signature | + +-------+ + + + | Anion Gap | 12 | 7 - 21 mmol/L | | | + +-------+ + + + | Bun/Creatin | 19.8 | 6.0 - 28.6 | | | | ine | | Ratio | | | + +-------+ + + + | Globulin | 2.9 | 1.8 - 3.5 g/dl | | | + +-------+ + + + | Albumin/Benita | 1.4 | 1.1 - 2.4 Ratio | | | | bulin Ratio | | | | | + +-------+ + + + + + | Specimen | + + | Blood | + + Lipid Panel (12/01/2018) + +---------+ + + + | Component | Value | Ref Range | Performed | Pathologist | | | | | At | Signature | + +---------+ + + + | VLDL | 48 (A) | 4 - 40 | | | | Cholesterol | | | | | | Marquise | | | | | + +---------+ + + + | Chol/HDL | 7.1 (A) | 0.0 - 5.0 Ratio | | | | Ratio | | | | | + +---------+ + + + | Non HDL | 183 (A) | 0 - 130 | | | | Chol. | | | | | | (LDL+VLDL) | | | | | + +---------+ + + + + + | Specimen | + + | Blood | + + External Lab: KENDELL (12/01/2018) + +-------+ + + + | Component | Value | Ref Range | Performed | Pathologist | | | | | At | Signature | + +-------+ + + + | BUN, | 20 | 6 - 23 | EXTERNAL | | | External | | | LAB | | + +-------+ + + + + +---------+ + + | Performing | Address | City/State/Zipcode | Phone Number | | Organization | | | | + +---------+ + + | EXTERNAL LAB | | | | + +---------+ + + External Lab: Glucose (12/01/2018) + +---------+ + + + | Component | Value | Ref Range | Performed | Pathologist | | | | | At | Signature | + +---------+ + + + | Glucose, | 150 (A) | 70 - 100 | EXTERNAL | | | External | | | LAB | | + +---------+ + + + + +---------+ + + | Performing | Address | City/State/Zipcode | Phone Number | | Organization | | | | + +---------+ + + | EXTERNAL LAB | | | | + +---------+ + + External Lab: PSA (12/01/2018) + +-------+ + + + | Component | Value | Ref Range | Performed | Pathologist | | | | | At | Signature | + +-------+ + + + | PSA, | 2.70 | 0 - 4 | EXTERNAL | | | External | | | LAB | | + +-------+ + + + + +---------+ + + | Performing | Address | City/State/Zipcode | Phone Number | | Organization | | | | + +---------+ + + | EXTERNAL LAB | | | | + +---------+ + + External Lab: ALT (12/01/2018) + +-------+ + + + | Component | Value | Ref Range | Performed | Pathologist | | | | | At | Signature | + +-------+ + + + | ALT, | 37 | 7 - 52 | EXTERNAL | | | External | | | LAB | | + +-------+ + + + + +---------+ + + | Performing | Address | City/State/Zipcode | Phone Number | | Organization | | | | + +---------+ + + | EXTERNAL LAB | | | | + +---------+ + + External Lab: AST (12/01/2018) + +-------+ + + + | Component | Value | Ref Range | Performed | Pathologist | | | | | At | Signature | + +-------+ + + + | AST, | 22 | 13 - 39 | EXTERNAL | | | External | | | LAB | | + +-------+ + + + + +---------+ + + | Performing | Address | City/State/Zipcode | Phone Number | | Organization | | | | + +---------+ + + | EXTERNAL LAB | | | | + +---------+ + + External Lab: Alkaline Phosphatase (12/01/2018) + +-------+ + + + | Component | Value | Ref Range | Performed | Pathologist | | | | | At | Signature | + +-------+ + + + | ALP, | 89 | 31 - 120 | EXTERNAL | | | External | | | LAB | | + +-------+ + + + + +---------+ + + | Performing | Address | City/State/Zipcode | Phone Number | | Organization | | | | + +---------+ + + | EXTERNAL LAB | | | | + +---------+ + + External Lab: Albumin (12/01/2018) + +-------+ + + + | Component | Value | Ref Range | Performed | Pathologist | | | | | At | Signature | + +-------+ + + + | Albumin, | 4.0 | 3.5 - 5 | EXTERNAL | | | External | | | LAB | | + +-------+ + + + + +---------+ + + | Performing | Address | City/State/Zipcode | Phone Number | | Organization | | | | + +---------+ + + | EXTERNAL LAB | | | | + +---------+ + + External Lab: Protein, Total (12/01/2018) + +-------+ + + + | Component | Value | Ref Range | Performed | Pathologist | | | | | At | Signature | + +-------+ + + + | Protein, | 6.9 | 6 - 8.3 | EXTERNAL | | | Total, | | | LAB | | | External | | | | | + +-------+ + + + + +---------+ + + | Performing | Address | City/State/Zipcode | Phone Number | | Organization | | | | + +---------+ + + | EXTERNAL LAB | | | | + +---------+ + + External Lab: Calcium (12/01/2018) + +-------+ + + + | Component | Value | Ref Range | Performed | Pathologist | | | | | At | Signature | + +-------+ + + + | Calcium, | 9.2 | 8.5 - 10.3 | EXTERNAL | | | External | | | LAB | | + +-------+ + + + + +---------+ + + | Performing | Address | City/State/Zipcode | Phone Number | | Organization | | | | + +---------+ + + | EXTERNAL LAB | | | | + +---------+ + + External Lab: Carbon Dioxide (12/01/2018) + +-------+ + + + | Component | Value | Ref Range | Performed | Pathologist | | | | | At | Signature | + +-------+ + + + | Carbon | 27 | 19 - 31 | EXTERNAL | | | Dioxide, | | | LAB | | | External | | | | | + +-------+ + + + + +---------+ + + | Performing | Address | City/State/Zipcode | Phone Number | | Organization | | | | + +---------+ + + | EXTERNAL LAB | | | | + +---------+ + + External Lab: Chloride (12/01/2018) + +-------+ + + + | Component | Value | Ref Range | Performed | Pathologist | | | | | At | Signature | + +-------+ + + + | Chloride, | 104 | 95 - 112 | EXTERNAL | | | External | | | LAB | | + +-------+ + + + + +---------+ + + | Performing | Address | City/State/Zipcode | Phone Number | | Organization | | | | + +---------+ + + | EXTERNAL LAB | | | | + +---------+ + + External Lab: Potassium (12/01/2018) + +-------+ + + + | Component | Value | Ref Range | Performed | Pathologist | | | | | At | Signature | + +-------+ + + + | Potassium, | 3.8 | 3.6 - 5.1 | EXTERNAL | | | External | | | LAB | | + +-------+ + + + + +---------+ + + | Performing | Address | City/State/Zipcode | Phone Number | | Organization | | | | + +---------+ + + | EXTERNAL LAB | | | | + +---------+ + + External Lab: Sodium (12/01/2018) + +-------+ + + + | Component | Value | Ref Range | Performed | Pathologist | | | | | At | Signature | + +-------+ + + + | Sodium, | 139 | 132 - 143 | EXTERNAL | | | External | | | LAB | | + +-------+ + + + + +---------+ + + | Performing | Address | City/State/Zipcode | Phone Number | | Organization | | | | + +---------+ + + | EXTERNAL LAB | | | | + +---------+ + + External Lab: CBC (12/01/2018) + + + + + + | Component | Value | Ref Range | Performed | Pathologist | | | | | At | Signature | + + + + + + | WBC, | 5.0 | 4.5 - 11 | EXTERNAL | | | External | | | LAB | | + + + + + + | HGB, | 14.6 | 13.5 - 18 | EXTERNAL | | | External | | | LAB | | + + + + + + | HCT, | 43.7 | 41 - 50 | EXTERNAL | | | External | | | LAB | | + + + + + + | PLT, | 234 | 140 - 440 | EXTERNAL | | | External | | | LAB | | + + + + + + | Lymphocytes | 21.5 (A) | 24 - 44 | EXTERNAL | | | %, | | | LAB | | | External | | | | | + + + + + + | Monocytes | 10.2 | 0 - 12 | EXTERNAL | | | %, External | | | LAB | | + + + + + + | Eosinophils | 2.5 | 0 - 6 | EXTERNAL | | | %, | | | LAB | | | External | | | | | + + + + + + | RBC, | 4.81 | 4.3 - 5.7 | EXTERNAL | | | External | | | LAB | | + + + + + + | MCV, | 91 | 81 - 99 | EXTERNAL | | | External | | | LAB | | + + + + + + | RDW, | 13.5 | 10.5 - 15 | EXTERNAL | | | External | | | LAB | | + + + + + + + +---------+ + + | Performing | Address | City/State/Zipcode | Phone Number | | Organization | | | | + +---------+ + + | EXTERNAL LAB | | | | + +---------+ + + External Lab: Triglycerides (12/01/2018) + +---------+ + + + | Component | Value | Ref Range | Performed | Pathologist | | | | | At | Signature | + +---------+ + + + | Triglycerid | 242 (A) | 30 - 150 | EXTERNAL | | | es, | | | LAB | | | External | | | | | + +---------+ + + + + + | Specimen | + + | Blood | + + + +---------+ + + | Performing | Address | City/State/Zipcode | Phone Number | | Organization | | | | + +---------+ + + | EXTERNAL LAB | | | | + +---------+ + + External Lab: Cholesterol, HDL (12/01/2018) + +--------+ + + + | Component | Value | Ref Range | Performed | Pathologist | | | | | At | Signature | + +--------+ + + + | HDL | 30 (A) | 40 - 99,999 | EXTERNAL | | | Cholesterol | | mg/dl | LAB | | | , External | | | | | + +--------+ + + + + + | Specimen | + + | Blood | + + + +---------+ + + | Performing | Address | City/State/Zipcode | Phone Number | | Organization | | | | + +---------+ + + | EXTERNAL LAB | | | | + +---------+ + + External Lab: Cholesterol, Total (12/01/2018) + +---------+ + + + | Component | Value | Ref Range | Performed | Pathologist | | | | | At | Signature | + +---------+ + + + | Cholesterol | 213 (A) | 0 - 200 mg/dl | EXTERNAL | | | , Total, | | | LAB | | | External | | | | | + +---------+ + + + + + | Specimen | + + | Blood | + + + +---------+ + + | Performing | Address | City/State/Zipcode | Phone Number | | Organization | | | | + +---------+ + + | EXTERNAL LAB | | | | + +---------+ + + External Lab: Cholesterol, LDL (12/01/2018) + +---------+ + + + | Component | Value | Ref Range | Performed | Pathologist | | | | | At | Signature | + +---------+ + + + | LDL | 135 (A) | 0 - 100 | EXTERNAL | | | Cholesterol | | | LAB | | | , External | | | | | + +---------+ + + + + + | Specimen | + + | Blood | + + + +---------+ + + | Performing | Address | City/State/Zipcode | Phone Number | | Organization | | | | + +---------+ + + | EXTERNAL LAB | | | | + +---------+ + + External Lab: eGFR (12/01/2018) + +-------+ + + + | Component | Value | Ref Range | Performed | Pathologist | | | | | At | Signature | + +-------+ + + + | eGFR, | 73 | 60 - 99,999 | EXTERNAL | | | External | | | LAB | | + +-------+ + + + + + | Specimen | + + | Blood | + + + +---------+ + + | Performing | Address | City/State/Zipcode | Phone Number | | Organization | | | | + +---------+ + + | EXTERNAL LAB | | | | + +---------+ + + External Lab: Creatinine (12/01/2018) + +-------+ + + + | Component | Value | Ref Range | Performed | Pathologist | | | | | At | Signature | + +-------+ + + + | Creatinine, | 1.01 | 0.7 - 1.108 | EXTERNAL | | | External | | | LAB | | + +-------+ + + + + + | Specimen | + + | Blood | + + + +---------+ + + | Performing | Address | City/State/Zipcode | Phone Number | | Organization | | | | + +---------+ + + | EXTERNAL LAB | | | | + +---------+ + + documented in this encounter Visit Diagnoses Not on filedocumented in this encounter"
--- OUTSIDE RECORDS SUMMARY | ~2019-03-17 | XMS | Encounter Summary ---
Demographics + + + | Address | [address] | | | [place] [address] | + + + | Home Phone | | + + + | Preferred Language | Unknown | + + + | Marital Status | | + + + | Jain Affiliation | 1077 | + + + | Race | Unknown | + + + | Ethnic Group | Unknown | + + + Author + + + | Author | [facility] | | | and [place] | + + + | Organization | [facility] | | | [...] Team Providers + +------+ + | Care Rf Microwave Engineer Name | Role | Phone | + [...] | | presence not | | [place] [address] | | | | | specified | | Phone: | | | | | Rectal | | [phone] | | | | | bleeding | | Fax: | | | | | Hematemesis, | | [phone] | | | | | presence of | | | | | | | nausea not | | | | | | | specified | | | | | | | Pacemaker | | | | | | | Procedures | | | | | | | SC | | | | | | | ESOPHAGOGAST | | | | | | | RODUODENOSCO | | | | | | | PY TRANSORAL | | | | | | | DIAGNOSTIC | | | | | | | SC EGD | | | | | | | TRANSORAL | | | | | | | BIOPSY | | | | | | | SINGLE/MULTI | | | | | | | PLE SC | | | | | | | COLONOSCOPY | | | | | | | FLX DX | | | | | | | W/COLLJ SPEC | | | | | | | WHEN PFRMD | | | | | | | SC | | | | | | | COLONOSCOPY | | | | | | | W/BIOPSY | | | | | | | SINGLE/MULTI | | | | | | | PLE SC | | | | | | | COLSC FLX | | | | | | | W/RMVL OF | | | | | | | TUMOR POLYP | | | | | | | LESION SNARE | | | | | | | TQ SC | | | | | | | [...] + + | 02/21/ | Hospital | [facility] | Oswaldo Streeter MD | Gastroesophageal | | 2019 | Encounter | [facility] | [address] | reflux disease, | | | | [address] | [place] [address] [place] | esophagitis presence | | | | [place], [place] | [place] [address] | not specified; | | | | [address] | [phone] | Rectal bleeding; | | | | [phone] | | Hematemesis, | | | | | | presence of nausea | | | | | | not specified; | | | | | | Pacemaker | +--------+ + + + + Social [...] You can't be awakened Date Last Reviewed: 08/04/[id number] [employer] [place] [address], [place] [address]. All righ ts reserved. This information is [...] 02/21/2019 | [employer]OVATION | | 2:16 PMMRN: [id number] #: [id number] of : | | | 8Admit Type: AmbulatoryAge: 68Room: [facility] 01Gender: MaleNote | | | Status: FinalizedAttending MD: Oswaldo Streeter , | | | MDProcedure: Upper GI | | | endoscopyIndications: Heartburn, Suspected esophageal | | | reflux, HematemesisProviders: Oswaldo Streeter MD, | | | Sylvia Galeas RN, Kamini Bonner | | | Whitney, Rope Maker, Rigoberto Jones MD (Anesthesia | | | [...] the anesthesiologist | | | and the weatherization technician in the pre-procedure area in the [...] PMScope Out: 2:40:51 | | | PM [facility], [address] [place] [address] | | | [place] [address] | | | - Follow an antireflux [...] |Scope Out: 2:40:51 PM | | | [facility], [address] [place] [address] | | | [address] | | + + ---+ + +---------+ [...] 02/21/2019 | [employer]OVATION | | 2:15 PMMRN: [id number] #: [id number] of : | | | 8Admit Type: AmbulatoryAge: 68Room: [facility] 01Gender: MaleNote | | | Status: FinalizedAttending MD: Oswaldo Streeter , | | | MDProcedure: ColonoscopyIndications: | | | HematocheziaProviders: Oswaldo Streeter MD, Sylvia | | | Adal, RN, Kamini Olson, | | | Rope Maker, Rigoberto Jones MD (Anesthesia | | | [...] the anesthesiologist | | | and the weatherization technician in the pre-procedure area in the [...] PMScope Out: 3:05:58 PM | | | [facility], [address] [place] [address] | | | [id number] | | | - Repeat colonoscopy in [...] |Scope Out: 3:05:58 PM | | | [facility], [address] [place] [address] | | | [address] | | + + ---+ + +---------+ [...] | | | is negative for organisms. [facility] FINAL PATHOLOGIC DIAGNOSIS: | | | [...] | | - Tubular adenoma (one fragment). JVR:[facility]:C2NR GROSS | | | DESCRIPTION: Ten [...] component was | | | performed by [facility], [address] [place] [address] | | | (Communications Planner: Susan Jimenez MD; IA# [id number]). Professional | | | [facility] | | [facility], [address] [place] [address] | | | [id number] (Communications Planner: Mukul Welsh M.D.). | | | Diagnostician: [...] ONCE PRN, Wheezing, | | | Starting 02/21/19 at 1526, For | | | 1 [...] mL/hr, Intravenous, | | | CONTINUOUS, Starting Wed02/21/19 | | | at 1345, Pre-op | | + +---+ | | | + +---+ + +---------+ +--------+-------+--------+ | lactated ringers (LR) infusion | New Bag | 02/22/20 | 1,000 | 100 | Right | | at 10-100 mL/hr, Intravenous, | | 19 14:12 | mLs | mL/hr | Arm | | CONTINUOUS, Starting Wed02/21/19 | | PDT | | | | [...]
--- OUTSIDE RECORDS SUMMARY | ~2019-03-17 | XMS | Clinical Summary ---
Demographics + + + | Address | [address] | | | [place] [address] | + + + | Home Phone | | + + + | Preferred Language | Unknown | + + + | Marital Status | Single | + + + | Presybeterian Affiliation | 1077 | + + + | Race | Unknown | + + + | Ethnic Group | Unknown | + + + Author + + + | Author | [facility] | + + + | Organization | [facility] | + + + | Address [...] Team Providers + +------+ + | Care Straightening Press Operator Helper Name | Role | Phone | + +------+ + | Jose Segal MD | PP | | + +------+ + Allergies + + + + + + | Active Allergy | Reactions | Severity | Noted | Comments | | | | | Date | | + + + + + + | Iodinated Diagnostic | Other (See Comments) | Medium | 10/03/20 | Numbness all over | | Agents | | | 15 | but mostly in his | | | | | | face | + + + + + + | Penicillins | Rash | Medium | 10/03/20 | | | | | | 15 | | + + + + + + | Proton Pump | Other (See Comments) | Medium | 07/20/20 | Causes | | Inhibitors | | | 16 | constipation | + + + + + + Current Medications + + +-------+---------+------+------+-------+ | Prescription | Sig. | Disp. | Refills | Star | End | Statu | | | | | | t | Date | s | | | | | | Date | | | + + +-------+---------+------+------+-------+ | diphenhydrAMINE | Take 25 mg by mouth | | | | | Activ | | (BENADRYL ALLERGY) | as needed for | | | | | e | | 25 mg capsule | Itching. | | | | | | + + +-------+---------+------+------+-------+ | aspirin 500 MG EC | Take 500 mg by mouth | | | | | Activ | | tablet | every 6 (six) hours | | | | | e | | | as needed for Pain. | | | | | | + + +-------+---------+------+------+-------+ | Multiple | Take 1 tablet by | | | | | Activ | | Vitamins-Minerals | mouth as needed. | | | | | e | | (MULTIVITAMIN ADULT | | | | | | | | PO) | | | | | | | + + +-------+---------+------+------+-------+ | Probiotic Product | Take 1 tablet by | | | | | Activ | | (PROBIOTIC | mouth as needed. | | | | | e | | MULTI-ENZYME) TABS | | | | | | | + + +-------+---------+------+------+-------+ | fexofenadine | Take 180 mg by mouth | | | | | Activ | | (GIRISH) 180 MG | as needed. | | | | | e | | tablet | | | | | | | + + +-------+---------+------+------+-------+ | | Take 1 tablet by | | | | | Activ | | Tlmfuf-Awoqb-Plzu-B1 | mouth 2 (two) times | | | | | e | | 2-Liver (LIVERITE | daily. | | | | | | | PO) | | | | | | | + + +-------+---------+------+------+-------+ | Black | Take 1 capsule by | | | | | Activ | | Pepper-Turmeric | mouth daily. | | | | | e | | 3-500 MG CAPS | | | | | | | + + +-------+---------+------+------+-------+ | peppermint oil | 1 Units by Each Nare | | | | | Activ | | liquid | route as needed. | | | | | e | + + +-------+---------+------+------+-------+ | Tea Tree Oil OIL | Apply 1 Units | | | | | Activ | | | topically as needed. | | | | | e | + + +-------+---------+------+------+-------+ Active Problems + + + | Problem | Noted Date | + + + | Coronary artery disease without angina pectoris | 06/09/2017 | + + + + + | Last Assessment & Plan: No chest pain in over a yearHe feel | | overall improved with lifestyle changesHe will continue | | Amlodipine, MetoprololHe do not want to take Statins- even after | | long discussion about risks, benefits- he would like to try some | | thing natural- I advised him to take Red Rice yeast.09/2015- | | Stress test done for syncope was mildly abnormal with small | | inferior-apical ischemiaEcho done [facility] [place] showed normal | | LV systolic ajuocpwd02/2016- Cath showed- small and branch vessel | | CAD. 50% mid LAD disease noted- B/l carotid dopplers- no | | significant disease notedAdvised him to continue to take ASA 81mg | | dailyHe will return early in case of worsening symptoms or will | | come to ER.Follow up annually. | + + + + + | Angina effort | 07/07/2016 | + + + + + | Last Assessment & Plan: He feel overall improved with | | lifestyle changesHe still have on and off chest discomfort- but | | overall improvingHe will continue Amlodipine, MetoprololHe do not | | want to take Statins- even after long discussion about risks, | | benefits- he would like to try some thing natural- I advised him | | to take Red Rice yeast.09/2015- Stress test done for syncope was | | mildly abnormal with small inferior-apical ischemiaEcho done in | | [facility], [place] showed normal LV systolic ptjrvasp13/2016- Cath | | showed- small and branch vessel CAD. 50% mid LAD disease noted- | | B/l carotid dopplers- no significant disease notedAdvised him to | | continue to take ASA 81mg dailyF/u in 6 months.He will return | | early in case of worsening symptoms or will come to ER. | + + + + + | Pacemaker | 02/25/2016 | + + + + + | Overview: Medtronic - pacemaker | | Advisa MRI compatible serial number [id number]. | + + + + + | SSS (sick sinus syndrome) | 12/24/2015 | + + + + + | Last Assessment & Plan: no symptoms No chest pain, SOB, | | syncope, palpitationsNo events since PPM placementDual-chamber | | pacemaker implant with Advisa Medtronic MRI compatible unit was | | placedEcho done in [facility] [place] showed normal LV systolic | | functionStress MPI- small inferior-apical ischemia- low risk | | stress MPI-Cath- 08/2016- Non obstructive CAD, 50% LAD disease | | noted and branch -small vessel disease notedNo symptoms, denies | | any chest pain, SOBFunctional capacity and energy levels improved | | with PPM placementFollows with PPM clinicNo events on | | monitoringFollow up annually | |No events on monitoring | |Follow up annually | + + + + + | Abnormal cardiovascular stress test | 12/24/2015 | + + + + + | Last Assessment & Plan: He feel improved s/p PPM- improved | | energy levels, no chest pain, dyspneaStress test done for syncope | | was mildly abnormal with small inferior-apical ischemiaEcho done | | in [facility], [place] showed normal LV systolic functionB/l carotid | | dopplers- no significant disease notedDiscussed with him about | | stress test- he is currently asymptomatic and feel significantly | | improved since PPM and would like to continue to follow up | | closely and will consider additional cardiology work up if | | symptomatic. Discussed with him about CAD, presentations, | | management options including coronary angiogramLipid profile | | prior to next visit.Advised him to continue to take ASA 81mg | | daily | + + + + + | Cardiac pacemaker in situ | 11/05/2015 | + + + + + | Overview: Medtronic Advisa MRI compatible, s# [id number]. | | RV Lead - Medtronic 5076, 52 cm, with s# [id number]. RA Lead - | | Medtronic 5076, 45 cm, s# [id number]. | + + + + + | Bradycardia | 10/03/2015 | + + + | Pre-syncope | 10/03/2015 | + + + + + | Last Assessment & Plan: Developed presyncope while driving | | and lost control of wheelHe is having multiple events of sudden | | dizzy spells over last few years but not to this extentAlways | | know to be having low heart rate.EKG- sinus bradycardia vs | | junctional bradycardiaEcho done in [place] showed normal LV | | systolic functionHolter monitoring- showed junctional rhythm and | | also evidence of accelerated ventricular rhythmExercise stress | | test demonstrated non reversible bradycardia/ chronotropic | | incompetence and is changed to Lexiscan showed low risk stress | | test, small inferior-apical ischemiaB/l carotid dopplers- no | | significant disease notedThere is significant evidence of rhythm | | abnormalities contributing to the multiple presyncopal events- he | | might benefit from a Dual chamber pacemaker placementHis driving | | license is taken awayWill proceed with pacemaker placement for | | next week.Consent obtained after discussing risks, benefits, | | alternatives to PPM therapy- he verbally expressed understanding | | of the procedure. | + + + +---+ | Coronary artery disease | | + +---+ + + | Overview: Mild-moderate branch vessel disease, medical | | treatment | + + Encounters +--------+ + + + + | Date | Type | Specialty | Care Team | Description | +--------+ + + + + | 02/15/ | Documentati | | Wilver Andrew RN | Pacemaker Check | | 2019 | on Only | | | (Remote) | +--------+ + + + + | 12/20/ | Office | | Amando Chow, | Coronary artery | | 2019 | Visit | | MD | disease involving | | | | | | torres martinez coronary | | | | | | artery of torres martinez | | | | | | heart without angina | | | | | | pectoris (Primary | | | | | | Dx); Paroxysmal | | | | | | atrial fibrillation | | | | | | ([facility]); Bradycardia; | | | | | | [place]aud-Boyer | | | | | | syncope; SSS (sick | | | | | | sinus syndrome) | | | | | | ([facility]); Cardiac | | | | | | pacemaker in situ; | | | | | | Mixed | | | | | | hyperlipidemia; | | | | | | Ventricular | | | | | | tachycardia | | | | | | (paroxysmal) ([facility]) | +--------+ + + + + from Last 3 Months Family History + + +------+ + | Medical History | Relation | Name | Comments | + + +------+ + | Cancer | Brother | | | + + +------+ + | Cancer | Brother | | bladder | + + +------+ + | Coronary Artery | Brother | | | | Disease | | | | + + +------+ + | Cancer | Father | | | + + +------+ + | Cancer | Mother | | colon CA | + + +------+ + | Coronary Artery | Mother | | 3x bypass | | Disease | | | | + + +------+ + + +------+ + + | Relation | Name | Status | Comments | + +------+ + + | Brother | | | | | | | (Age | | | | | 63) | | + +------+ + + | Brother | | Alive | | + +------+ + + | Father | | | CA | + +------+ + + | Mother | | | old age | | | | (Age | | | | | 82) | | + +------+ + + Social History + +-------+ +--------+ [...] heavy drinker when he was in the [employer], quit | | | Standard | | 1973 | | | drinks or | | | | | | | | | | equivalen | | | | | t | | | + + +---------+ + + + + | Sex Assigned at | Date Recorded | | | | + + + | Not on file | | + + + Last Filed Vital Signs + + + + | Vital Sign | Reading | Time Taken | + + + + | Blood Pressure | 138/92 | 12/20/2018 2:45 PM PST | + + + + | Pulse | 69 | 12/20/2018 2:45 PM PST | + + + + | Temperature | 36.5 C (97.7 F) | 07/20/2016 1:56 PM PDT | + + + + | Respiratory Rate | 18 | 06/09/2017 11:19 AM PDT | + + + + | Oxygen Saturation | 98% | 12/20/2018 2:45 PM PST | + + + + | Inhaled Oxygen | - | - | | Concentration | | | + + + + | Weight | 90 kg (198 lb 8 oz) | 12/20/2018 2:45 PM PST | + + + + | Height | 177.8 cm (5' 10") | 12/20/2018 2:45 PM PST | + + + + | Body Mass Index | 28.48 | 12/20/2018 2:45 PM PST | + + + + Plan of Treatment +--------+ + + + + | Date | Type | Specialty | Care Team | Description | +--------+ + + + + | 05/17/ | Documentati | | | | | 2018 | on Only | | | | +--------+ + + + + + + + + + | Health Maintenance | Due Date | Last Done | Comments | + + + + + | Vaccine: | | | | | Dtap/Tdap/Td (1 - | 7 | | | | Tdap) | | | | + + + + + | Colon Cancer | | | | | Screening | 8 | | | | (Colonoscopy) | | | | + + + + + | Vaccine: Zoster (1 | | | | | of 2) | 8 | | | + + + + + | Vaccine: | | | | | Pneumococcal 65+ | 3 | | | | Low/Medium Risk (1 | | | | | of 2 - PCV13) | | | | + + + + + | Vaccine: Influenza | | | | | (Season Ended) | 9 | | | + + + + + Implants + +--------+-------+ +--------+--------+--------+ | Implanted | Type | Area | Manufacture | Device | Expira | Model | | | | | r | | tion | / | | | | | | Identi | Date | Serial | | | | | | fier | | / Lot | + +--------+-------+ +--------+--------+--------+ | Capsurefix | Pacema | Heart | | | | | | | ker | | | | | /[id number] | | | | | | | | [id number] | | | | | | | | / | + +--------+-------+ +--------+--------+--------+ | Capsurefix | Pacema | Heart | | | | | | | ker | | | | | /[id number] | | | | | | | | [id number] | | | | | | | | / | + +--------+-------+ +--------+--------+--------+ | Advisa | Pacema | Heart | | | | | | | ker | | | | | /[id number] | | | | | | | | [id number] | | | | | | | | / | + +--------+-------+ +--------+--------+--------+ Procedures + +--------+ + + + | Procedure Name | Priori | Date/Time | Associated Diagnosis | Comments | | | ty | | | | + +--------+ + + + | EKG STANDARD 12 LEAD | Routin | 12/20/2018 | Coronary artery | Results for this | | | e | 2:52 PM | disease involving | procedure are in the | | | | PST | torres martinez coronary | results section. | | | | | artery of torres martinez | | | | | | heart without angina | | | | | | pectoris | | + +--------+ + + + from Last 3 Months Results EKG STANDARD 12 LEAD (12/20/2018 2:52 PM) + + + + + | Component | Value | Ref Range | Performed At | + + + + + | Ventricular Rate | 68 | BPM | [facility] | + + + + + | Atrial Rate | 68 | BPM | [facility] | + + + + + | P-R Interval | 204 | ms | [facility] | + + + + + | QRS Duration | 100 | ms | [facility] | + + + + + | Q-T Interval | 388 | ms | [facility] | + + + + + | QTC Calculation | 412 | ms | [facility] | | (Bezet) | | | | + + + + + | Calculated P Anton | 26 | degrees | [facility] | + + + + + | Calculated R Anton | -8 | degrees | [facility] | + + + + + | Calculated T Anton | 19 | degrees | [facility] | + + + + + | Diagnosis | Atrial-paced | | [facility] | | | rhythmAbnormal ECGWhen | | | | | compared with ECG of | | | | | 01-APR-2017 | | | | | 10:24,Previous ECG has | | | | | undetermined rhythm, | | | | | needs reviewConfirmed by | | | | | [facility] Read Only, [facility] | | | | | Belkis ([id number]), writer editor | | | | | SANDRA MARSHALL ([id number]) | | | | | on 12/20/2018 3:37:16 PM | | | + + + + + + + + + + | Performing | Address | City/State/Zipcode | Phone Number | | Organization | | | | + + + + + | [facility] | [address] | [place] [address] | | + + + + + from Last 3 Months Insurance + +--------+ +------+-------+ + | Payer | Benefi | Subscriber | Type | Phone | Address | | | t Plan | ID | | | | | | / | | | | | | | Group | | | | | + +--------+ +------+-------+ + | MEDICARE | MEDICA | [id number] | | | [address] | | | RE | | | | [place], [place] [address] | | | IP-OP | | | | | + +--------+ +------+-------+ + | COMMERCIAL OTHER | STATE | [id number] | | | | | | FARM | 7 | | | | | | MEDICA | | | | | | | L | | | | | | | INSURA | | | | | | | NCE | | | | | + +--------+ +------+-------+ + + +--------+ +--------+ + + | Guarantor Name | Accoun | Relation to | Date | Phone | Billing Address | | | t Type | Patient | of | | | | | | | | | | + +--------+ +--------+ + + | ALEX FOSS | Person | Self [birth year] Home: | [address] | | | al/[place] | | 1950 | [phone] | [place] | | | [place] | | [phone] | [address] | + +--------+ +--------+ + +
--- OUTSIDE RECORDS SUMMARY | ~2019-03-17 | XMS | Encounter Summary ---
Demographics + + + | Address | [address] | | | [place] [address] | + + + | Home Phone | | + + + | Preferred Language | Unknown | + + + | Marital Status | Single | + + + | Gnosticism Affiliation | Unknown | + + + | Race | White | + + + | Ethnic Group | Not or | + + + Author + + + | Author | [facility] | + + + | Organization | [facility] | + + + | Address | Unknown | + + + | Phone | Unavailable | + + + Support + + +---------+ + | Name | Relationship | Address | Phone | + + +---------+ + | Kayli Lundy | ECON | Unknown | | + + +---------+ + Care Team Providers + +------+ + | Care Milieu Coordinator Name | Role | Phone | + +------+ + | No Pcp Per Patient | PCP | Unavailable | + +------+ + Encounter Details +--------+ + + + + | Date | Type | Department | Care Team | Description | +--------+ + + + + | 07/23/ | Documentati | [facility] | Christopher Velasco | | | 2013 | on | [place] [facility] [address] | [address] | | | | | [address] | [address], | | | | | Mailcode: [place] | [place] [address] | | | | | for Health and | [phone] | | | | | [facility] [address] | | | | | | [place], [place] | | | | | | [address] | | | | | | [phone] | | | +--------+ + + + [...]
--- OUTSIDE RECORDS SUMMARY | ~2019-03-17 | XMS | Encounter Summary ---
Demographics + + + | Address | [address] | | | [place] [address] | + + + | Home Phone | | + + + | Preferred Language | Unknown | + + + | Marital Status | Single | + + + | Sikh Affiliation | Unknown | + + + | Race | White | + + + | Ethnic Group | Not or | + + + Author + + + | Author | [facility] | + + + | Organization | [facility] | + + + | Address | Unknown | + + + | Phone | Unavailable | + + + Support + + +---------+ + | Name | Relationship | Address | Phone | + + +---------+ + | Kayli Lundy | ECON | Unknown | | + + +---------+ + Care Team Providers + +------+ + | Care Machine Overhauler Name | Role | Phone | + +------+ + | No Pcp Per Patient | PCP | Unavailable | + +------+ + Encounter Details +--------+ + + + + | Date | Type | Department | Care Team | Description | +--------+ + + + + | 03/25/ | Document-Sc | Health Information | Unknown . | | | 2017 | anned | Services [address] | | | | | | [facility] | | | | | | Road Mailcode: | | | | | | [address] [place] [address] | | | | | | [facility] | | | | | | [place], [place] | | | | | | [address] | | | | | | [phone] | | | +--------+ + + + [...]
--- OUTSIDE RECORDS SUMMARY | ~2019-03-17 | XMS | Encounter Summary ---
Demographics + + + | Address | [address] | | | [place] [address] | + + + | Home Phone | | + + + | Preferred Language | Unknown | + + + | Marital Status | | + + + | [employer] Affiliation | 1077 | + + + | Race | Unknown | + + + | Ethnic Group | Unknown | + + + Author + + + | Author | [facility] | | | and [place] | + + + | Organization | [facility] | | | [...] Team Providers + +------+ + | Care Environmental Compliance Inspector Name | Role | Phone | + [...] + + | 01/03/ | Telephone | [facility] [place] | Oswaldo Streeter MD | Procedure | | 2019 | | GASTROENTEROLOGY | [address] | | | | | [address] [place] | [place] [address] | | | | | [address] [place] | [place] [address] | | | | | [address] | [phone] | | | | | [phone] | | | +--------+ + + + [...]
--- OUTSIDE RECORDS SUMMARY | ~2019-03-17 | XMS | Encounter Summary ---
Demographics + + + | Address | [address] | | | [place] [address] | + + + | Home Phone | | + + + | Preferred Language | Unknown | + + + | Marital Status | Single | + + + | Mormon Affiliation | 1077 | + + + | Race | Unknown | + + + | Ethnic Group | Unknown | + + + Author + + + | Author | [facility] | + + + | Organization | [facility] [employer] [facility] | + + + | Address [...] Team Providers + +------+ + | Care Hand Cell Tuber Name | Role | Phone | + +------+ + | Jose Segal MD | PCP | | + +------+ + Reason for Visit + + + | Reason | Comments | + + + | Follow-up | annual | + + + Encounter Details +--------+---------+ + + + | Date | Type | Department | Care Team | Description | +--------+---------+ + + + | 12/20/ | Office | [facility] | Amando Chow, | Coronary artery | | 2019 | Visit | Cardiology Manny | [address] | disease involving | | | | [address] [facility] [address] | [place], | conf[place] sal[place] coronary | | | | [address] | [place] [address] | artery of conf[place]ish | | | | [place], [place] [address] | [phone] | heart without angina | | | | [phone] | | pectoris (Primary | | | | | | Dx); Paroxysmal | | | | | | atrial fibrillation | | | | | | ([facility]); Bradycardia; | | | | | | Michaud-Boyer | | | | | | syncope; SSS (sick | | | | | | sinus syndrome) | | | | | | ([facility]); Cardiac | | | | | | pacemaker in situ; | | | | | | Mixed | | | | | | hyperlipidemia; | | | | | | Ventricular | | | | | | tachycardia | | | | | | (paroxysmal) ([facility]) | +--------+---------+ + + + Social History [...] heavy drinker when he was in the [place], quit | | | Standard | | [...] + + + as of this encounter Last Filed Vital Signs + + + + | Vital Sign | Reading | Time Taken | + + + + | Blood Pressure | 138/92 | 12/20/2018 2:45 PM PST | + + + + | Pulse | 69 | 12/20/2018 2:45 PM PST | + + + + | Temperature | - | - | + + + + | Respiratory Rate | - | - | + + + + | Oxygen [...] PM PST | + + + + in this encounter Progress Notes Amando Chow MD - 12/20/2018 2:30 PM PSTFormatting of this note may be different from the original. Subjective: Patient ID: Alex Foss is a 68 y.o. male. HPI The following portions of the patient's history were reviewed and updated as appropriate an d is available elsewhere in the record: allergies, current medications, past medical history , past social history, past surgical history and problem list. Mr. Foss came to the office today for a cardiology follow-up for his mild-moderate CAD, pr esent in branch vessels, history of syncope, SSS and pacemaker. He has no significant chest pain, pressure or discomfort to suggest angina pectoris, dyspnea, syncope, palpitations or other symptoms. His intermittent, mild, mid retrosternal chest pain is more likely due to h is GERD and hiatal hernia, which is being evaluated. He has had no syncopal or near syncopa l events since his pacemaker was implanted. His blood pressure is mildly elevated. In the p ast, for a short time, he was on lisinopril and metoprolol, but no longer takes these. I di d not start him on any medications today, but this will need to be reevaluated. He seems qu ite stable, and I would not put him on any medications at this time. His last pacemaker qian ck 11/16/18 showed normal function, 88% atrial pacing, 3.1% ventricular pacing, with 6 years, 8 months of estimated battery longevity remaining. There were 2 brief runs of nonsustained ventricular tachycardia, 10/17/18 and 10/31/18. He will have his GI evaluation, and possibl e surgery for his hiatal hernia, and I will see him back in a few months, to reassess the BP issue. Review of Systems CONSTITUTIONAL: No recent significant weight change, denies recent fever, chills, night sw eats, significant fatigue NEUROLOGIC: No history of CVA, TIA, migraines, seizures. No numbness, tingling, paresthes ias, dizziness, lightheadedness. He has had vertigo in the past, not recently. He has a "f og in my head, and a ringing in my head" EYES: No amaurosis, diplopia, recent visual changes, cataracts or glaucoma ENT: He has mild hearing loss, has tinnitus, denies epistaxis, dysphagia ENDOCRINE: No history of diabetes. No history of thyroid disorders or other endocrine prob lems. No excessive hunger, thirst. PULMONARY/SLEEP: No dyspnea, orthopnea, paroxysmal nocturnal dyspnea. No history of asthm a, emphysema. Denies significant snoring, daytime somnolence. Sleep is refreshing. CARDIOVASCULAR: Syncope while driving and sick sinus syndrome manifested by chronotropic d eficiency, pacemaker implanted. He has intermittent, mild left-sided chest pains, pressure, unrelated to exertion, lasting up to "a day or so", no positional or pleuritic component. H e has mild-moderate branch disease CAD. No history of heart failure. No history of cardiac a rrhythmias. No palpitations. He has a history of a heart murmur in childhood, denies rheuma tic fever. No history of hypertension, hyperlipidemia. No edema, no claudication symptoms. No h/o an AAA. -- Cardiac cath (07/20/16): LAD-proximal 30%, mid 50%, medium D2-ostial 70%, small D3 with m oderate diffuse disease treated 90% septal material planning analyst stenosis. LCx-mild diffuse disease. RCA-large, dominant vessel, normal, 70% mid PDA stenosis, medium caliber vessel -- Pacemaker (11/05/15): Medtronic Advisa MRI compatible, s# [id number]. RV Lead - Medtron ic 5076, 52 cm, with s# [id number]. RA Lead - Medtronic 5076, 45 cm, s# [id number]. -- Carotid U/S (10/29/15): Mild intimal thickening, no significant disease -- Lexiscan Myoview stress test (10/29/15): Small apical inferior ischemia. Rest EF: 66% St ress EF: 73%. --Lipid panel (10/22/17): TC-144, LDL-89, HDL-27, TG-140 GASTROINTESTINAL: No recent abdominal pain, nausea, vomiting or diarrhea. Denies PUD, shannon na, hematochezia, hepatitis. RENAL/: He has intermittent dysuria ("if there's pressure in my bowel and bladder at the same time"), has rare episodes of Hematuria, denies urinary urgency, hesitancy. Bladder tu mor 1978. BPH with obstructive symptoms. HEMATOLOGY/ONCOLOGY: No h/o bleeding disorders, DVT, PE. Denies easy bruisability or ble eding. No history of anemia, transfusions. No history of cancer. MUSCULOSKELETAL: No myalgias, arthralgias. No history of rheumatologic or autoimmune dise ases. CUTANEOUS: No rashes, pruritus, lesions. PSYCHIATRIC: No history of depression, anxiety or other psychiatric problems. Past Medical History Diagnosis Date Bladder cancer (HCC) 1978 BPH (benign prostatic hyperplasia) Cardiac pacemaker in situ 11/05/2015 Medtronic Advisa MRI compatible, s# [id number]. RV Lead - Medtronic 5076, 52 cm, with s# [id number]. RA Lead - Medtronic 5076, 45 cm, s# [id number]. Coronary artery disease Mild-moderate branch vessel disease, medical treatment Lymph node cancer (HCC) "sarcoma", diagnosed by a return clerk, treated with herbal remedies in 9 months Memory loss Osteoarthritis Paresthesia Syncope Past Surgical History Procedure Laterality Date bladder EAR RECONSTRUCTION Bilateral 1959 cosmetic HERNIA REPAIR Left 2009 inguinal PACEMAKER PLACEMENT 11/05/2015 Medtronic Advisa MRI compatible, s# [id number]. RV Lead - Medtronic 5076, 52 cm, with s# [id number]. RA Lead - Medtronic 5076, 45 cm, s# [id number]. PROSTATE SURGERY SINUS SURGERY 2002 2 x TUMOR EXCISION 1978 bladder Family History Problem Relation Age of Onset Coronary Artery Disease Mother 3x bypass Cancer Mother colon CA Cancer Father Cancer Brother Cancer Brother bladder Coronary Artery Disease Brother Social History Substance Use Topics Smoking status: Former Smoker Packs/day: 1.00 Years: 1.00 Quit date: 04/01/1969 Smokeless tobacco: Never Used Comment: pipe smoker Alcohol use No Comment: heavy drinker when he was in the [place], quit 1972 Allergies Allergen Reactions Iodinated Diagnostic Agents Other (See Comments) Numbness all over but mostly in his face Penicillins Rash Proton Pump Inhibitors Other (See Comments) Causes constipation Current Outpatient Prescriptions: diphenhydrAMINE (BENADRYL ALLERGY) 25 mg capsule, Take 25 mg by mouth as needed for It felicitas., Disp: , Rfl: aspirin 500 MG EC tablet, Take 500 mg by mouth every 6 (six) hours as needed for Pain. , Disp: , Rfl: Black Pepper-Turmeric 3-500 MG CAPS, Take 1 capsule by mouth daily., Disp: , Rfl: fexofenadine (GIRISH) 180 MG tablet, Take 180 mg by mouth as needed., Disp: , Rfl: Xmlolp-Gcvvu-Wyfu-P30-Tlbew (LIVERITE PO), Take 1 tablet by mouth 2 (two) times daily. , Disp: , Rfl: Multiple Vitamins-Minerals (MULTIVITAMIN ADULT PO), Take 1 tablet by mouth as needed., Disp: , Rfl: peppermint oil liquid, 1 Units by Each Nare route as needed., Disp: , Rfl: Probiotic Product (PROBIOTIC MULTI-ENZYME) TABS, Take 1 tablet by mouth as needed., Di sp: , Rfl: Tea Tree Oil OIL, Apply 1 Units topically as needed., Disp: , Rfl: Objective: Physical Exam BP (!) 138/92 (BP Location: Right upper arm, Patient Position: Sitting) | Pulse 69 | Ht 1 .778 m (5' 10") | Wt 90 kg (198 lb 8 oz) | SpO2 98% | BMI 28.48 kg/m GENERAL: Well developed, well nourished, in no distress. Appears approximately stated age . HEENT: Normocephalic, atraumatic. EYES: PERRL, sclerae anicteric, no xanthelsasmas MOUTH: Oral mucosae moist, dentition adequate, no lesions noted NECK: No JVD, lymphadenopathy, thyromegaly, bruits. Carotid pulses are 2+ bilaterally LUNGS: Clear bilaterally, with no rales, rhonchi or wheezing noted, respirations unlabored HEART: Left-sided pacemaker pocket appears normal. Nondisplaced PMI, regular rate and rhy thm, S1, S2 normal. No murmurs, rubs or gallops noted. ABDOMEN: Soft, nontender, no organomegaly, masses or bruits. Bowel sounds are normal in a ll 4 quadrants. The abdominal aortic pulsation is not palpable. EXTREMITIES: No edema. Radial pulses 2+ bilaterally. Femoral pulses are 2+ bilaterally wi thout bruits. DP and PT pulses are 2+ bilaterally. SKIN: Warm and dry, capillary refill is normal, no lesions. NEUROLOGIC: Awake, alert and oriented x 3. No focal motor deficits. PSYCHIATRIC: Appropriate, affect appears normal EKG: Atrial paced rhythm with capture, intrinsic ventricular conduction, no ST-T abnormalit ies Assessment and Plan: Alex was seen today for follow-up. Coronary artery disease involving [place] coronary artery of [place] heart without angina pec toris - Electrocardiogram, 12-lead Paroxysmal atrial fibrillation (HCC) Bradycardia Michaud-Boyer syncope SSS (sick sinus syndrome) (HCC) Cardiac pacemaker in situ Mixed hyperlipidemia Ventricular tachycardia (paroxysmal) (HCC) in this encounter Plan of Treatment +--------+ + + + + | Date | Type | Specialty | Care Team | Description | +--------+ + + + + | 05/17/ | Documentati | Cardiology | | | | 2018 | on Only | | | | +--------+ + + + + as of this encounter Procedures + +--------+ [...] the | | | | PST | conf[place] coronary | results section. | | | | | artery of [place] | | | | | | heart without angina | | | | | | pectoris | | + +--------+ + + + in this encounter Results EKG STANDARD 12 LEAD (12/20/2018 2:52 PM) + + + + + | Component | Value | Ref Range | Performed At | + + + + + | Ventricular Rate | 68 | BPM | [facility] | + + + + + [...] + + + + | Calculated P [place] | 26 | degrees | [facility] | + + + + + | Calculated R [place] | -8 | degrees | [facility] | + + + + + | Calculated T [place] | 19 | degrees | [facility] | + + + + + | Diagnosis | Atrial-paced | | [facility] E[facility] | | | rhythmAbnormal ECGWhen | | | | | compared with ECG of | | | | | 01-APR-2017 | | | | | 10:24,Previous ECG has | | | | | undetermined rhythm, | | | | | needs reviewConfirmed by | | | | | [facility] [place] [facility], [facility] | | | | | Belkis ([id number]), staff editor | | | | | SANDRA MARSHALL ([id number]) | | | | | on 12/20/2018 3:37:16 PM | | | + + + + + + + + + + | Performing | Address | City/State/Zipcode | Phone Number | | Organization | | | | + + + + + | [facility] | [address] | [place] [address] | | + + + + + in this encounter Visit Diagnoses + + | Diagnosis | + + | Coronary artery disease involving [place] coronary artery of [place] heart without | | angina pectoris - Primary | + + | Paroxysmal atrial fibrillation (HCC) | + + | Atrial fibrillation | + + | Bradycardia | + + | Other specified cardiac dysrhythmias | + + | Michaud-Boyer syncope | + + | Conduction disorder, unspecified | + + | SSS (sick sinus syndrome) (HCC) | + + | Sinoatrial node dysfunction | + + | Cardiac pacemaker in situ | + + | Mixed hyperlipidemia | + + | Ventricular tachycardia (paroxysmal) (HCC) | + + | Paroxysmal ventricular tachycardia | + +
--- OUTSIDE RECORDS SUMMARY | ~2019-03-17 | XMS | Clinical Summary ---
Demographics + + + | Address | [address] | | | [place] [address] | + + + | Home Phone | | + + + | Preferred Language | Unknown | + + + | Marital Status | Single | + + + | Temple Affiliation | Unknown | + + + [...] Team Providers + +------+ + | Care Sample Checker Name | Role | Phone | + +------+ + | No Pcp Per Patient | PP | Unavailable | + +------+ + Source Comments ADRIANE is fully live on both [facility] and [facility] InPatient.[facility] Allergies No Known Allergies Medications + + [...] | ITY | | for | | [place], | | | | [place] | | all | | [place] [address] | | | | RCE | | [...] | [birth year] | | [address] | | | al/[place]le | | 1950 | [phone] | [place] [address] | | | ken | | | 1 (Home) | | + +--------+ +--------+ + + | Alex Foss | [place] | Self | [birth year] | | [address] | | | [place] | | 1950 | [phone] | [place] [address] | | | red | | | 1 (Home) | | + +--------+ +--------+ + +"
--- OUTSIDE RECORDS SUMMARY | ~2019-03-17 | XMS | Encounter Summary ---
Demographics + + + | Address | [address] | | | [place] [address] | + + + | Home Phone | | + + + | Preferred Language | Unknown | + + + | Marital Status | Single | + + + | Advent Affiliation | 1077 | + + + | Race | Unknown | + + + | Ethnic Group | Unknown | + + + Author + + + | Author | [facility] | + + + | Organization | [facility] [employer] [facility] | + + + | Address [...] Team Providers + +------+ + | Care Area Relief Pilot Name | Role | Phone | + [...] + | 12/20/ | Office | [facility] [place] | Amando Chow, | Coronary artery | | 2019 | Visit | Cardiology Manny | [address] | disease involving | | | | [address] [facility] [address] | [place], | [place] coronary | | | | [address] | [place] [address] | artery of [place] | | | | [place], [place] [address] | [phone] | heart without angina | | | | [phone] | | pectoris (Primary | | | | | | Dx); Paroxysmal | | | | | | atrial fibrillation | | | | | | ([facility]); Bradycardia; | | | | | | Michaud-Boyer | | | | | | syncope; SSS (sick | | | | | | sinus syndrome) | | | | | | ([facility]); Cardiac | | | | | | pacemaker in situ; | | | | | | Mixed | | | | | | hyperlipidemia; | | | | | | Ventricular | | | | | | tachycardia | | | | | | (paroxysmal) ([facility]) | +--------+---------+ + + + Social History [...] heavy drinker when he was in the [place], quit | | | Standard | | [...] m oderate diffuse disease treated 90% septal corrections counselor stenosis. LCx-mild diffuse disease. RCA-large, dominant vessel, normal, 70% mid PDA stenosis, medium caliber vessel -- Pacemaker (11/05/15): Medtronic Advisa MRI compatible, s# [id number]. RV Lead - Medtron ic 5076, 52 cm, with s# [id number]. RA Lead - Medtronic 5076, 45 cm, s# [id number]. -- Carotid U/S (10/29/15): Mild intimal thickening, [...] situ 11/05/2015 Medtronic Advisa MRI compatible, s# [id number]. RV Lead - Medtronic 5076, 52 cm, with s# [id number]. RA Lead - Medtronic 5076, 45 cm, s# [id number]. Coronary artery disease Mild-moderate branch vessel disease, medical treatment Lymph node cancer (HCC) "sarcoma", diagnosed by a security guards dispatcher, treated with herbal remedies in 9 months Memory loss Osteoarthritis Paresthesia Syncope Past Surgical History Procedure Laterality Date bladder EAR RECONSTRUCTION Bilateral 1959 cosmetic HERNIA REPAIR Left 2009 inguinal PACEMAKER PLACEMENT 11/05/2015 Medtronic Advisa MRI compatible, s# [id number]. RV Lead - Medtronic 5076, 52 cm, with s# [id number]. RA Lead - Medtronic 5076, 45 cm, s# [id number]. PROSTATE SURGERY SINUS SURGERY 2002 2 x [...] heavy drinker when he was in the [place], quit 1972 Allergies Allergen Reactions Iodinated Diagnostic [...] by mouth as needed., Disp: , Rfl: Bzflgj-Irxzn-Aqsc-C30-Whqrf (LIVERITE PO), Take 1 tablet by mouth [...] today for follow-up. Coronary artery disease involving [place] coronary artery of [place] heart without angina pec toris - Electrocardiogram, [...] the | | | | PST | [place] coronary | results section. | | | | | artery of [place] | | | | | | heart without angina | | | | | | pectoris | | + +--------+ + + + in this encounter Results EKG STANDARD 12 LEAD (12/20/2018 2:52 PM) + + + + + | Component | Value | Ref Range | Performed At | + + + + + | Ventricular Rate | 68 | BPM | [facility] | + + + [...] + + + + | Calculated P [place] | 26 | degrees | [facility] | + + + + + | Calculated R [place] | -8 | degrees | [facility] | + + + + + | Calculated T [place] | 19 | degrees | [facility] | + + + + + | Diagnosis | Atrial-paced | | [facility] EKG | | | rhythmAbnormal ECGWhen | | | | | compared with ECG of | | | | | 01-APR-2017 | | | | | 10:24,Previous ECG has | | | | | undetermined rhythm, | | | | | needs reviewConfirmed by | | | | | [facility] [place] [facility], [facility] | | | | | Belkis ([id number]), editor in chief | | | | | SANDRA MARSHALL ([id number]) | | | | | on 12/20/2018 3:37:16 PM | | | + + + + + + + + + + | Performing | Address | City/State/Zipcode | Phone Number | | Organization | | | | + + + + + | [facility] | [address] | [place] [address] | | + + + + + in this encounter Visit Diagnoses + + | Diagnosis | + + | Coronary artery disease involving [place] coronary artery of [place] heart without | | angina pectoris - [...]
--- OUTSIDE RECORDS SUMMARY | ~2019-03-17 | XMS | Encounter Summary ---
Demographics + + + | Address | [address] | | | [place] [address] | + + + | Home Phone | | + + + | Preferred Language | Unknown | + + + | Marital Status | | + + + | Druze Affiliation | 1077 | + + + | Race | Unknown | + + + | Ethnic Group | Unknown | + + + Author + + + | Author | [facility] | | | and [place] | + + + | Organization | [facility] | | | [...] Team Providers + +------+ + | Care Storm Sash Maker Name | Role | Phone | + [...] + + | 02/20/ | Telephone | [facility] | Oswaldo Streeter MD | Colonoscopy (prep | | 2019 | | GASTROENTEROLOGY | [address] [facility] | instructions | | | | [address] [facility] | [place] [address] | revised) | | | | [address] [place], [place] | [place] [address] | | | | | [address] | [phone] | | | | | [phone] | | | +--------+ + + + [...]
--- OUTSIDE RECORDS SUMMARY | ~2019-03-17 | XMS | Clinical Summary ---
Demographics + + + | Address | [address] | | | [place] [address] | + + + | Home Phone | | + + + | Preferred Language | Unknown | + + + | Marital Status | Single | + + + | Mandaen Affiliation | 1077 | + + + | Race | Unknown | + + + | Ethnic Group | Unknown | + + + Author + + + | Author | [facility] | + + + | Organization | [facility] [employer] [facility] | + + + | [...] Team Providers + +------+ + | Care Grab Operator Name | Role | Phone | + [...] | | | | Activ | | [id number]-[id number]-Vjjn-[id number] | mouth 2 (two) times | | [...] small | | inferior-apical ischemiaEcho done in [facility] [place] showed normal | | LV systolic dtrcaytw18/2016- Cath showed- small and branch vessel | [...] small inferior-apical ischemiaEcho done in | | [facility], [place] showed normal LV systolic ylusxqdo10/2016- Cath | | showed- small and branch [...] | | Advisa MRI compatible serial number [id number]. | + + + + + | SSS (sick sinus syndrome) | 12/24/2015 | + + + + + | Last Assessment & Plan: no symptoms No chest pain, SOB, | | syncope, palpitationsNo events since PPM placementDual-chamber | | pacemaker implant with Advisa Medtronic MRI compatible unit was | | placedEcho done in [facility], [place] showed normal LV systolic | [...] small inferior-apical ischemiaEcho done | | in [facility], [place] showed normal LV systolic functionB/l [...] | Overview: Medtronic Advisa MRI compatible, s# [id number]. | | RV Lead - Medtronic 5076, 52 cm, with s# [id number]. RA Lead - | | Medtronic 5076, 45 cm, s# [id number]. | + + + + + | [...] vs | | junctional bradycardiaEcho done in [place], [place] showed normal LV | | systolic [...] involving | | | | | | [place] coronary | | | | | | artery of [place] | | | | | | heart without angina | | | | | | pectoris (Primary | | | | | | Dx); Paroxysmal | | | | | | atrial fibrillation | | | | | | ([facility]); Bradycardia; | | | | | | Michaud-Boyer | | | | | | syncope; SSS (sick | | | | | | sinus syndrome) | | | | | | ([facility]); Cardiac | | | | | | pacemaker in situ; | | | | | | Mixed | | | | | | hyperlipidemia; | | | | | | Ventricular | | | | | | tachycardia | | | | | | (paroxysmal) ([facility]) | +--------+ + + + + from [...] heavy drinker when he was in the [place], quit | | | Standard | | [...] | | | | | | | [address] | | | | | | | | / | + +--------+-------+ +--------+--------+--------+ | [employer] | Pacema | Heart | | | | | | | ker | | | | | /[id number] | | | | | | | | [address] | | | | | | | [...] the | | | | PST | [place] coronary | results section. | | | | | artery of [place] | | | | | | heart [...] + + + + | Calculated P [place] | 26 | degrees | [facility] | + + + + + | Calculated R [place] | -8 | degrees | [facility] | + + + + + | Calculated T [place] | 19 | degrees | [facility] [...] by | | | | | [facility] [place] [facility], [facility] | | | | | Belkis ([id number]), science editor | | | | | SANDRA MARSHALL ([id number]) | | | | | on 12/20/2018 3:37:16 PM | | | + + + + + + + + + + | Performing | Address | City/State/Zipcode | Phone Number | | Organization | | | | + + + + + | [facility] | [address] | [place] [address] | | + + + + + [...] +------+-------+ + | MEDICARE | MEDICA | [id number] | | | [address] | | | RE | | | | [place], [place] [address] | | | IP-OP | | | | | + +--------+ +------+-------+ + | COMMERCIAL OTHER | STATE | [id number] | | | | | | FARM [...] | | | [place] | | | [address]34 | [phone] | + +--------+ +--------+ + +
--- OUTSIDE RECORDS SUMMARY | ~2019-03-17 | XMS | Encounter Summary ---
Demographics + + + | Address | [address] | | | [place] [address] | + + + | Home Phone | | + + + | Preferred Language | Unknown | + + + | Marital Status | | + + + | Zoroastrianism Affiliation | 1077 | + + + | Race | Unknown | + + + | Ethnic Group | Unknown | + + + Author + + + | Author | [facility] | | | and [place] | + + + | Organization | [facility] | | | [...] Team Providers + +------+ + | Care Assembly Repairer Name | Role | Phone | + +------+ + | Jose Segal MD | PCP | | + +------+ + Encounter Details +--------+ + + + + | Date | Type | Department | Care Team | Description | +--------+ + + + + | 02/24/ | Orders Only | [facility] | Oswaldo Streeter MD | Bishop's esophagus | | 2019 | | GASTROENTEROLOGY | [address] | determined by biopsy | | | | [address] [place] | [address] [place] | (Primary Dx); | | | | [address] [place], [place] | [place] [address] | Long-segment | | | | [address] | [phone] | Bishop's esophagus; | | | | [phone] | | Hiatal hernia | +--------+ + + + + Social [...] + + documented as of this encounter Progress Notes Mireille Coulter RN - 02/24/2019 1230 PDTPrilosec 20 mg BID ordered for long-segment Ubaldo t's and patient agreed to take 30 minutes before breakfast and dinner; recall placed to repe at EGD in 4-6 months. 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
--- OUTSIDE RECORDS SUMMARY | ~2019-03-17 | XMS | Encounter Summary ---
Demographics + + + | Address | [address] | | | [place] [address] | + + + | Home Phone | | + + + | Preferred Language | Unknown | + + + | Marital Status | | + + + | Christian Affiliation | 1077 | + + + | Race | Unknown | + + + | Ethnic Group | Unknown | + + + Author + + + | Author | [facility] | | | and [place] | + + + | Organization | [facility] | | | and [...] Team Providers + +------+ + | Care News Commentator Name | Role | Phone | + [...] | | presence not | | [place] [address] | | | | | specified | | Phone: | | | | | Rectal | | [phone] | | | | | bleeding | | Fax: | | | | | Hematemesis, | | [phone] | | | | | presence of | | | | | | | nausea not | | | | | | | specified | | | | | | | Pacemaker | | | | | | | Procedures | | | | | | | MI | | | | | | | ESOPHAGOGAST | | | | | | | RODUODENOSCO | | | | | | | PY TRANSORAL | | | | | | | DIAGNOSTIC | | | | | | | MI EGD | | | | | | | TRANSORAL | | | | | | | BIOPSY | | | | | | | SINGLE/MULTI | | | | | | | PLE MI | | | | | | | COLONOSCOPY | | | | | | | FLX DX | | | | | | | W/COLLJ SPEC | | | | | | | WHEN PFRMD | | | | | | | MI | | | | | | | COLONOSCOPY | | | | | | | W/BIOPSY | | | | | | | SINGLE/MULTI | | | | | | | PLE MI | | | | | | | COLSC FLX | | | | | | | W/RMVL OF | | | | | | | TUMOR POLYP | | | | | | | LESION SNARE | | | | | | | TQ MI | | | | | | | [...] + + | 02/21/ | Hospital | [facility] | Oswaldo Streeter MD | Gastroesophageal | | 2019 | Encounter | MED CTR MP INTRA OP | [address] | reflux disease, | | | | [address] | [address] [place] | esophagitis presence | | | | [place], [place] | [place] [address] | not specified; | | | | [address] | [phone] | Rectal bleeding; | | | | [phone] | | Hematemesis, | | | | [...] You can't be awakened Date Last Reviewed: 08/04/201619994270-2385 [address] [place] [address], [place] [address]. All righ ts reserved. This information is [...] 02/21/2019 | PROVATION | | 2:16 PMMRN: [id number] #: [id number] of : | | | 8Admit Type: AmbulatoryAge: 68Room: [facility] 01Gender: MaleNote | | | Status: FinalizedAttending MD: Oswaldo Streeter , | | | MDProcedure: Upper GI | | | endoscopyIndications: Heartburn, Suspected esophageal | | | reflux, HematemesisProviders: Oswaldo Streeter MD, | | | Sylvia Galeas RN, Kamini oBnner | | | Whitney, Citizenship Teacher, Rigoberto Jones MD (Anesthesia | | | [...] the anesthesiologist | | | and the electrical electronics technician in the pre-procedure area in the [...] PMScope Out: 2:40:51 | | | PM [facility], [address] [place] [address] | | | [place] [address] | | | - Follow an antireflux [...] |Scope Out: 2:40:51 PM | | | [facility], [address] [place] [address] | | | [address] | | + + ---+ + +---------+ [...] 02/21/2019 | PROVATION | | 2:15 PMMRN: [id number] #: [id number] of : | | | 8Admit Type: AmbulatoryAge: 68Room: [facility] 01Gender: MaleNote | | | Status: FinalizedAttending MD: Oswaldo Streeter , | | | MDProcedure: ColonoscopyIndications: | | | HematocheziaProviders: Oswaldo Streeter MD, Sylvia | | | Adal, RN, Kamini Olson, | | | Citizenship Teacher, Rigoberto Jones MD (Anesthesia | | | [...] the anesthesiologist | | | and the electrical electronics technician in the pre-procedure area in the [...] PMScope Out: 3:05:58 PM | | | [facility], [address] [place] [address] | | | [address] | | | - Repeat colonoscopy in [...] |Scope Out: 3:05:58 PM | | | [facility], [address] [place] [address] | | | [address] | | + + ---+ + +---------+ [...] | | | is negative for organisms. [facility] FINAL PATHOLOGIC DIAGNOSIS: | | | A. [...] | | - Tubular adenoma (one fragment). JVR:[facility]:C2NR GROSS | | | DESCRIPTION: Ten specimens [...] and | | | consists of four pink-jcakson soft tissue fragments that measure 0.1-0.3 | [...] component was | | | performed by [facility], [address] [place] [address] | | | (Case Advocate: Susan Jimenez MD; IA# [id number]). Professional | | | [facility] | | | [facility], [address] [place] [address] | | | [id number] (Case Advocate: Mukul Welsh M.D.). | | | Diagnostician: [...]
--- OUTSIDE RECORDS SUMMARY | ~2019-03-17 | XMS | Encounter Summary ---
Demographics + + + | Address | [address] | | | [place] [address] | + + + | Home Phone | | + + + | Preferred Language | Unknown | + + + | Marital Status | Single | + + + | Quaker Affiliation | Unknown | + + + | Race | White | + + + | Ethnic Group | Not or | + + + Author + + + | Author | [facility] | + + + | Organization | [facility] | + + + | Address | Unknown | + + + | Phone | Unavailable | + + + Support + + +---------+ + | Name | Relationship | Address | Phone | + + +---------+ + | Kayli Lundy | ECON | Unknown | | + + +---------+ + Care Team Providers + +------+ + | Care Transactional Paralegal Name | Role | Phone | + [...] W | | | | | | [facility] | | | | | | Road Mailcode: | | | | | | [address] [place] [address] | | | | | | [facility] [place] [place] | | | | | | [place], [place] | | | | | | [address] | | | | | | [phone] | | | +--------+ + + + [...]
--- OUTSIDE RECORDS SUMMARY | ~2019-03-17 | XMS | Encounter Summary ---
Demographics + + + | Address | [address] | | | [place] [address] | + + + | Home Phone | | + + + | Preferred Language | Unknown | + + + | Marital Status | Single | + + + | Jew Affiliation | Unknown | + + + | Race | White | + + + | Ethnic Group | Not or | + + + Author + + + | Author | [facility] | + + + | Organization | [facility] | + + + | Address | Unknown | + + + | Phone | Unavailable | + + + Support + + +---------+ + | Name | Relationship | Address | Phone | + + +---------+ + | Kayli Lundy | ECON | Unknown | | + + +---------+ + Care Team Providers + +------+ + | Care Car And Yard Supervisor Name | Role | Phone | + [...] | | | | | [facility] | [place], [place] | for Health | | | | | esophagus | [address] | and Healing, | | | | | GERD and | Phone: | [address] | | | | | [facility] | [phone] | [facility] [place] | | | | | Procedures | Fax: | [address] | | | | | CONSULT TO | [phone] | Phone: | | | | | GENERAL | | [phone] | | | | | SURGERY MI | | Fax: | | | | | ESOPHAGEAL | | [phone] | | | | | MOTILITY | [...] Encounter | Procedural Unit at | [facility] | | | | | [facility] | Road [place], [place] | | | | | [address] | [address] | | | | | Mailcode: OC2L | | | | | | [facility] | | | | | | and Healing, | | | | | | [address] | | | | | | [place], [place] | | | | | | [address] | | | | | | [phone] | | | +--------+ + + + [...]
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
--- OUTSIDE RECORDS SUMMARY | ~2019-03-17 | XMS | Encounter Summary ---
Demographics + + + | Address | [address] | | | [place] [address] | + + + | Home Phone | | + + + | Preferred Language | Unknown | + + + | Marital Status | Single | + + + | Jehovah'S Witness Affiliation | Unknown | + + + | Race | White | + + + | Ethnic Group | Not or | + + + Author + + + | Author | [facility] | + + + | Organization | [facility] | + + + | Address | Unknown | + + + | Phone | Unavailable | + + + Support + + +---------+ + | Name | Relationship | Address | Phone | + + +---------+ + | Kayli Lundy | ECON | Unknown | | + + +---------+ + Care Team Providers + +------+ + | Care Big Data Lead Name | Role | Phone | + [...] 2013 | | Center at [facility] [address] | | - General | | | | [address] | | | | | | Mailcode: Center | | | | | | for Health and | | | | | | Healing, [address] | | | | | | [place], [place] | | | | | | [address] | | | | | | [phone] | | | +--------+ + + + [...]
--- OUTSIDE RECORDS SUMMARY | ~2019-03-17 | XMS | Encounter Summary ---
Demographics + + + | Address | [address] | | | [place] [address] | + + + | Home Phone | | + + + | Preferred Language | Unknown | + + + | Marital Status | | + + + | Cheondoism Affiliation | 1077 | + + + | Race | Unknown | + + + | Ethnic Group | Unknown | + + + Author + + + | Author | [facility] | | | and [place] | + + + | Organization | [facility] | | | and [place] | + + + | Address | Unknown | + + + | Phone | Unavailable | + + + Support + + +---------+ + | Name | Relationship | Address | Phone | + + +---------+ + | PipoYonatan | ECON | Unknown | | + + +---------+ + | PipoKayli | ECON | Unknown | | + + +---------+ + Care Team Providers + +------+ + | Care Cake Tester Name | Role | Phone | + +------+ + | Jose Segal MD | PCP | | + +------+ + Reason for Referral Service/Procedure (Routine) + + + + + + + | Status | Reason | Specialty | Diagnoses / | Referred By | Referred To | | | | | Procedures | Contact | Contact | + + + + + + + | Pending | Specialty | Gastroenterol | Diagnoses | Ferdinand, | Ferdinand, | | Review | Services | ogy | Internal | MD Oswaldo | MD Oswaldo | | | Required | | hemorrhoids | [address] | | | | | Procedures | [address] | | | | | [place] ANOSCOPY | [place] [address] | | | | | DX W/COLLJ | [place], | [place], | | | | | SPEC [place] | [place] [address] | [place] [address] | | | | | SPX WHEN | Phone: | Phone: | | | | | PRFRMD [place] | [phone] | [phone] | | | | | HEMORRHOIDEC | Fax: | Fax: | | | | | YOVANA | [phone] | [phone] | | | | | INTERNAL | | | | | | | RUBBER BAND | | | | | | | LIGATIONS | | | | | | | RI | | | | | | | PROCTOSIGMOI | | | | | | | DOSCOPY,RIGI | | | | | | | D,DIAGNOS | | | | | | | RI SURGICAL | | | | | | | TRAYS | | | | | | | 03/16>PEND | | | | | | | TRIWEST | | | + + + + + + + Reason for Visit +---------+ + | Reason | Comments | +---------+ + | Results | colon | +---------+ + Encounter Details +--------+ + + + + | Date | Type | Department | Care Team | Description | +--------+ + + + + | 03/16/ | Telephone | [facility] | Oswaldo Streeter MD | Results (colon) | | 2019 | | GASTROENTEROLOGY | [address] | | | | | [address] [facility] [place] | [address] [facility] | | | | | [address] [place], [place] | [place] [address] | | | | | [address] | [phone] | | | | | [phone] | | | +--------+ + + + [...] as of this encounter Plan of Treatment + +--------+ + + | Name | Priori | Associated Diagnoses | Order Schedule | | | ty | | | + +--------+ + + | * [facility] Gastroenterology - | Routin | Internal | Expected: 03/16/2019 | | Hemorrhoid Ligation | e | hemorrhoids | (Approximate), | | | | | Expires: 03/16/2020 | + +--------+ + + documented as of this encounter Visit Diagnoses + + | Diagnosis | + + | Internal hemorrhoids - Primary Internal hemorrhoids without mention of complication | + + documented in this encounter"
--- OUTSIDE RECORDS SUMMARY | ~2019-03-17 | XMS | Encounter Summary ---
Demographics + + + | Address | [address] | | | [place] [address] | + + + | Home Phone | | + + + | Preferred Language | Unknown | + + + | Marital Status | | + + + | Rastafari Affiliation | 1077 | + + + | Race | Unknown | + + + | Ethnic Group | Unknown | + + + Author + + + | Author | [facility] | | | and [place] | + + + | Organization | [facility] | | | [...] Team Providers + +------+ + | Care Dairy Products Maker Name | Role | Phone | [...] | | presence not | | [place] [address] | | | | | specified | | Phone: | | | | | Rectal | | [phone] | | | | | bleeding | | Fax: | | | | | Hematemesis, | | [phone] | | | | | presence of | | | | | | | nausea not | | | | | | | specified | | | | | | | Pacemaker | | | | | | | Procedures | | | | | | | MA | | | | | | | ESOPHAGOGAST | | | | | | | RODUODENOSCO | | | | | | | PY TRANSORAL | | | | | | | DIAGNOSTIC | | | | | | | MA EGD | | | | | | | TRANSORAL | | | | | | | BIOPSY | | | | | | | SINGLE/MULTI | | | | | | | PLE MA | | | | | | | COLONOSCOPY | | | | | | | FLX DX | | | | | | | W/COLLJ SPEC | | | | | | | WHEN PFRMD | | | | | | | MA | | | | | | | COLONOSCOPY | | | | | | | W/BIOPSY | | | | | | | SINGLE/MULTI | | | | | | | PLE MA | | | | | | | COLSC FLX | | | | | | | W/RMVL OF | | | | | | | TUMOR POLYP | | | | | | | LESION SNARE | | | | | | | TQ MA | | | | | | | [...] + + | 02/21/ | Anesthesia | [facility] | Rigoberto Jones | | | 2019 | Event | MED CTR MP INTRA OP | MD Adrianna [address] | | | | | [address] | [address] [place] [address] | | | | | [place] | [address] | | | | | [address] | [phone] | | | | | [phone] | | | +--------+ + + + + Anesthesia Record + + + + + | Procedure Name | Responsible | Anesthesia Start | Anesthesia Stop Time | | | Anesthesiologist | Time | | + + + + + | RAJ (N/A Dahlia) | Rigoberto Jones, | 02/21/19 1417 | 02/21/19 1516 | | | MD | | | + + + + + +----+---+ + + | Da | T | Event | Comment | | te | i | | | | | m | | | | | e | | | +----+---+ + + | 05 | 1 | | | | /0 | 4 | | | | 7/ | 1 | | | | 20 | 4 | | | | 19 | | | | +----+---+ + + | | 1 | An Checkout | Pre-use anesthesia machine/equipment checkout. | | | 4 | | | | | 1 | | | | | 7 | | | +----+---+ + + | | 1 | An Start | | | | 4 | Data | | | | 1 | | | | | 7 | | | +----+---+ + + | | 1 | An Start | Room ready, anesthesia equipment checked, essential drugs & | | | 4 | | equipment available. Patient Identity checked, anesthesia plan | | | 1 | | explained and consent obtained. Patient transported to [facility], | | | 7 | | Monitors applied. Reassessment prior to anesthesia | | | | | induction/procedure. | +----+---+ + + | | 1 | an ketan now | | | | 4 | | | | | 2 | | | | | 0 | | | +----+---+ + + | | 1 | AN | Per surgeon request | | | 4 | Antibiotic | | | | 2 | declined | | | | 1 | | | +----+---+ + + | | 1 | Pre-Procedu | | | | 4 | ral Timeout | | | | 2 | Completed | | | | 2 | | | +----+---+ + + | | 1 | First | | | | 4 | Inc/Proc St | | | | 2 | | | | | 3 | | | +----+---+ + + | | 1 | an ketan now | | | | 4 | | | | | 2 | | | | | 6 | | | +----+---+ + + | | 1 | an ketan now | Colonoscopy | | | 4 | | | | | 4 | | | | | 6 | | | +----+---+ + + | | 1 | an ketan now | SDSU 5 | | | 5 | | | | | 1 | | | | | 2 | | | +----+---+ + + | | 1 | an stop | | | | 5 | data | | | | 1 | | | | | 2 | | | +----+---+ + + | | 1 | An Stop | Patient handed off to recovery nurse. | | | 1 | | | | | 6 | | | +----+---+ + + +------+ | Meds | +------+ + + + | Name | Total | + + + | propofol | 160 mg | + + + | propofol | 349.8 mg | + + + | lactated ringers (LR) infusion | 0 mL | + + + | lactated ringers (LR) infusion | 700 mL | + + + + + | Name | + + | O2 Flow Rate (L/Min) | + + + + | No blood administrations on file. | + + +--------+ + + + | Type | Details | Placement | Removal | +--------+ + + + | Periph | 02/21/19; 1359; Right; | 02/21/19 1359 by | 02/21/19 1704 by Curt | | guzman | Antecubital; hpor-bhq-mgwerc | Hollie Pollard, [place] | L [place] Jenkins | | IV | catheter system; 20 gauge, 1 10/21 | | | | | in length; 1; right forearm; | | | | | topical anesthetic spray applied, | | | | | tolerated well; 02/21/19; 1704 | | | +--------+ + + + documented in this encounter Social History + +-------+ +--------+------+ | Tobacco [...] in this encounter Administered Medications + +--------+ +-------+------+------+ | Medication Order | MAR | Action | Dose | Rate | Site | | | Action | Date | | | | + +--------+ +-------+------+------+ | propofol (DIPRIVAN) injection | Given | 02/22/20 | 40 mg | | | | Intravenous, PRN, Starting Tue | | 19 14:26 | | | | | 02/21/19 at 1423, Anesthesia | | PDT | | | | | Intra-op | | | | | | + +--------+ +-------+------+------+ +-------+ +-------+---+---+ | Given | 02/22/20 | 40 mg | | | | | 19 14:25 | | | | | | PDT | | | | +-------+ +-------+---+---+ | Given | 02/22/20 | 40 mg | | | | | 19 14:24 | | | | | | PDT | | | | +-------+ +-------+---+---+ +---+---+ | | | +---+---+ + + + + +-------+---+ | propofol (DIPRIVAN) injection | Rate/Dos | 02/22/20 | 50 | 26.4 | | | Intravenous, CONTINUOUS PRN, | e Change | 19 14:56 | mcg/kg/m | mL/hr | | | Starting 02/21/19 at 1426, | | PDT | in | | | | Anesthesia Intra-op | | | | | | + + + + +-------+---+ + + + + +---+ | Rate/Dose Change | 02/22/20 | 100 | 52.8 | | | | 19 14:36 | mcg/kg/m | mL/hr | | | | PDT | in | | | + + + + +---+ | Rate/Dose Change | 02/22/20 | 125 | 66 mL/hr | | | | 19 14:31 | mcg/kg/m | | | | | PDT | in | | | + + + + +---+ +---+---+ | | | +---+---+ documented in this encounter"
--- OUTSIDE RECORDS SUMMARY | ~2019-03-17 | XMS | Encounter Summary ---
Demographics + + + | Address | [address] | | | [place] [address] | + + + | Home Phone | | + + + | Preferred Language | Unknown | + + + | Marital Status | Single | + + + | Buddhist Affiliation | Unknown | + + + | Race | White | + + + | Ethnic Group | Not or | + + + Author + + + | Author | [facility] | + + + | Organization | [facility] | + + + | Address | Unknown | + + + | Phone | Unavailable | + + + Support + + +---------+ + | Name | Relationship | Address | Phone | + + +---------+ + | Kayli Lundy | ECON | Unknown | | + + +---------+ + Care Team Providers + +------+ + | Care Food Production Associate Name | Role | Phone | + [...] | 2014 | Referral | EEG at [facility] [address] | MD ADELAIDA Regalado | | | | Order | [facility] | [facility] | | | | | Road Mailcode: | [address] [facility] | | | | | [address] | [place] | | | | [facility] | [address] | | | | | [place] | [phone] | | | | | [address] | | | | | | [phone] | | | +--------+ + + + [...] 09/06/2015 Place | | | of Service: [facility] Department: EEG HR - | | | [id number] ROUTINE EEG Indication: 65 year old man [...] | | | Arya Kim. Suggested CPT: 79340 - EEG Routine Awake & Asleep | | | Suggested Dx: R40.4 Transient alteration of awareness | | + + + documented in this encounter Visit Diagnoses Not on filedocumented in this encounter"
--- OUTSIDE RECORDS SUMMARY | ~2019-03-17 | XMS | Encounter Summary ---
Demographics + + + | Address | [address] | | | [place] [address] | + + + | Home Phone | | + + + | Preferred Language | Unknown | + + + | Marital Status | Single | + + + | Denominational Affiliation | Unknown | + + + [...] Team Providers + +------+ + | Care Hot Strip Mill Supervisor Name | Role | Phone | + +------+ + | No Pcp Per Patient | PCP | Unavailable | + +------+ + Reason for Visit + + + | Reason | Comments | + + + | Medical Records | | | Review | | + + + Encounter Details +--------+ + + + + | Date | Type | Department | Care Team | Description | +--------+ + + + + | 07/05/ | Documentati | Endoscopic | Lab, Gi Procedure | Medical Records | | 2013 | on | Procedural Unit at | | Review | | | | [facility] | | | | | | [address] | | | | | | Mailcode: OC2L | | | | | | [facility] | | | | | and Healing, | | | | | | [address] | | | | | | [place], [place] | | | | | | [address] | | | | | | [phone] | | | +--------+ + + + [...]
--- OUTSIDE RECORDS SUMMARY | ~2019-03-17 | XMS | Encounter Summary ---
Demographics + + + | Address | [address] | | | [place] [address] | + + + | Home Phone | | + + + | Preferred Language | Unknown | + + + | Marital Status | | + + + | Denominational Affiliation | 1077 | + + + | Race | Unknown | + + + | Ethnic Group | Unknown | + + + Author + + + | Author | [facility] | | | and [place] | + + + | Organization | [facility] | | [...] Team Providers + +------+ + | Care Granulating Blender Name | Role | Phone | + [...] | | presence not | | [place] [address] | | | | | specified | | Phone: | | | | | Rectal | | [phone] | | | | | bleeding | | Fax: | | | | | Hematemesis, | | [phone] | | | | | presence of | | | | | | | nausea not | | | | | | | specified | | | | | | | Pacemaker | | | | | | | Procedures | | | | | | | NC | | | | | | | ESOPHAGOGAST | | | | | | | RODUODENOSCO | | | | | | | PY TRANSORAL | | | | | | | DIAGNOSTIC | | | | | | | NC EGD | | | | | | | TRANSORAL | | | | | | | BIOPSY | | | | | | | SINGLE/MULTI | | | | | | | PLE NC | | | | | | | COLONOSCOPY | | | | | | | FLX DX | | | | | | | W/COLLJ SPEC | | | | | | | WHEN PFRMD | | | | | | | NC | | | | | | | COLONOSCOPY | | | | | | | W/BIOPSY | | | | | | | SINGLE/MULTI | | | | | | | PLE NC | | | | | | | COLSC FLX | | | | | | | W/RMVL OF | | | | | | | TUMOR POLYP | | | | | | | LESION SNARE | | | | | | | TQ NC | | | | | | | [...] [place] | | | | | | [address] | | | | | | [phone] | | | +--------+---------+ + + + [...] You can't be awakened Date Last Reviewed: 08/04/201619999399-4549 [employer]. [address] [place] [address], [place] [address]. All righ ts reserved. This information is [...] 02/21/2019 | PROVATION | | 2:16 PMMRN: [id number] #: [id number] of : | | | 8Admit Type: AmbulatoryAge: 68Room: [facility] 01Gender: MaleNote | | | Status: FinalizedAttending MD: Oswaldo Streeter , | | | MDProcedure: Upper GI | | | endoscopyIndications: Heartburn, Suspected esophageal | | | reflux, HematemesisProviders: Oswaldo Streeter MD, | | | Sylvia Galeas RN, Kamini Bonner | | | Whitney, Power Supply Engineer, Rigoberto Jones MD (Anesthesia | | | [...] the anesthesiologist | | | and the generator technician in the pre-procedure area in the [...] PMScope Out: 2:40:51 | | | PM [facility], [address] [place] [address] | | | [place] [address] | | | - Follow an antireflux [...] |Scope Out: 2:40:51 PM | | | [facility], [address] [place] [address] | | | [address] | | + + ---+ + +---------+ [...] 02/21/2019 | PROVATION | | 2:15 PMMRN: [id number] #: [id number] of : | | | 8Admit Type: AmbulatoryAge: 68Room: [facility] 01Gender: MaleNote | | | Status: FinalizedAttending MD: Oswaldo Streeter , | | | MDProcedure: ColonoscopyIndications: | | | HematocheziaProviders: Oswaldo Streeter MD, Sylvia | | | Adal, RN, Kamini Olson, | | | Power Supply Engineer, Rigoberto Jones MD (Anesthesia | | | [...] the anesthesiologist | | | and the generator technician in the pre-procedure area in the [...] PMScope Out: 3:05:58 PM | | | [facility], [address] [facility], [place], [place] | | | [address] | | | - Repeat colonoscopy in [...] |Scope Out: 3:05:58 PM | | | [facility], [address] [facility], [place], [place] | | | [address] | | + + ---+ + +---------+ [...] | | | is negative for organisms. JVR:[facility] FINAL PATHOLOGIC DIAGNOSIS: | | | [...] | | - Tubular adenoma (one fragment). JVR:[facility]:C2NR GROSS | | | DESCRIPTION: Ten [...] component was | | | performed by [facility] [address] | | | (Dinkey Brakeman: Susan Jimenez MD; IA# [id number]). Professional | | | interpretation was performed by [facility] | | | [address] | | | [address] (Dinkey Brakeman: Mukul Welsh M.D.). | | | Diagnostician: [...]
--- OUTSIDE RECORDS SUMMARY | ~2019-03-17 | XMS | Encounter Summary ---
Demographics + + + | Address | [address] | | | [place] [address] | + + + | Home Phone | | + + + | Preferred Language | Unknown | + + + | Marital Status | | + + + | Yazdanism Affiliation | 1077 | + + + [...] Team Providers + +------+ + | Care Egg Packer Name | Role | Phone | + [...] [address] | | | | | [place] ANOSCOPY | [address] | [address] | | | | | DX W/COLLJ | [place], | [place], | | | | | SPEC BR/[place] | [place] [address] | [place] [address] | | | | | SPX WHEN | Phone: | Phone: | | | | | PRFRMD [place] | [phone] | [phone] | | | | | HEMORRHOIDEC | Fax: | Fax: | | | | | YOVANA | [phone] | [phone] | | | | | INTERNAL | | | | | | | RUBBER BAND | | | | | | | LIGATIONS | | | | | | | [place] | | | | | | | PROCTOSIGMOI | | | | | | | DOSCOPY,RIGI | | | | | | | D,DIAGNOS | | | | | | | [place] SURGICAL | | | | | | [...] + + | 03/16/ | Telephone | [facility] | Oswaldo Streeter MD | Results (colon) | | 2019 | | GASTROENTEROLOGY | [address] | | | | | [address] [facility] [place] | [address] [facility] | | | | | [address] [place], [place] | [place] [address] | | | | | [address] | [phone] | | | | | [phone] | | | +--------+ + + + [...]
--- OUTSIDE RECORDS SUMMARY | ~2019-03-17 | XMS | Encounter Summary ---
Demographics + + + | Address | [address] | | | [place] [address] | + + + | Home Phone | | + + + | Preferred Language | Unknown | + + + | Marital Status | | + + + | Confucianism Affiliation | 1077 | + + + | Race | Unknown | + + + | Ethnic Group | Unknown | + + + Author + + + | Author | [facility] | | | and [place] | + + + | Organization | [facility] | | | [...] Team Providers + +------+ + | Care Country Printer Name | Role | Phone | + [...] | | presence not | | [place] [address] | | | | | specified | | Phone: | | | | | Rectal | | [phone] | | | | | bleeding | | Fax: | | | | | Hematemesis, | | [phone] | | | | | presence of | | | | | | | nausea not | | | | | | | specified | | | | | | | Pacemaker | | | | | | | Procedures | | | | | | | MD | | | | | | | ESOPHAGOGAST | | | | | | | RODUODENOSCO | | | | | | | PY TRANSORAL | | | | | | | DIAGNOSTIC | | | | | | | MD EGD | | | | | | | TRANSORAL | | | | | | | BIOPSY | | | | | | | SINGLE/MULTI | | | | | | | PLE MD | | | | | | | COLONOSCOPY | | | | | | | FLX DX | | | | | | | W/COLLJ SPEC | | | | | | | WHEN PFRMD | | | | | | | MD | | | | | | | COLONOSCOPY | | | | | | | W/BIOPSY | | | | | | | SINGLE/MULTI | | | | | | | PLE MD | | | | | | | COLSC FLX | | | | | | | W/RMVL OF | | | | | | | TUMOR POLYP | | | | | | | LESION SNARE | | | | | | | TQ MD | | | | | | | [...] + | 02/21/ | Anesthesia | [facility] | Rigoberto Jones | | | 2019 | Event | MED [facility] INTRA OP | MD Adrianna [address] | | | | | [address] | [address] | | | | | [place] | [address] | | | | | [address] | [phone] | | | | | [phone] | | | +--------+ + + + [...] explained and consent obtained. Patient transported to [facility], | | | 7 | | Monitors [...] by Curt | | guzman | Antecubital; [id number] | Hollie Pollard, CHADWICK | L CHADWICK [...]
--- OUTSIDE RECORDS SUMMARY | ~2019-03-17 | XMS | Encounter Summary ---
Demographics + + + | Address | [address] | | | [place] [address] | + + + | Home Phone | | + + + | Preferred Language | Unknown | + + + | Marital Status | Single | + + + | Church Affiliation | Unknown | + + + | Race | White | + + + | Ethnic Group | Not or | + + + Author + + + | Author | [facility] | + + + | Organization | [facility] | + + + | Address | Unknown | + + + | Phone | Unavailable | + + + Support + + +---------+ + | Name | Relationship | Address | Phone | + + +---------+ + | Kayli Lundy | ECON | Unknown | | + + +---------+ + Care Team Providers + +------+ + | Care Rug Hooker Name | Role | Phone | + +------+ + | No Pcp Per Patient | PCP | Unavailable | + +------+ + Encounter Details +--------+ + + + + | Date | Type | Department | Care Team | Description | +--------+ + + + + | 09/17/ | Procedure-E | Neurology at | Katelynn Kim MD | | | 2015 | CX | [facility] & | [address] | | | | | Healing [address] | [address] [place], | | | | | [address] Mail Code: | [place] [address] | | | | | [address] [place] [address] for | [phone] | | | | | Health and Healing, | | | | | | [address] [place] [address], | | | | | | [place] [address] | | | | | | [phone] | | | +--------+ + + + [...]
--- OUTSIDE RECORDS SUMMARY | ~2019-03-17 | XMS | Encounter Summary ---
Demographics + + + | Address | [address] | | | [place] [address] | + + + | Home Phone | | + + + | Preferred Language | Unknown | + + + | Marital Status | | + + + | Confucianist Affiliation | 1077 | + + + | Race | Unknown | + + + | Ethnic Group | Unknown | + + + Author + + + | Author | [facility] | | | and [place] | + + + | Organization | [facility] | | [...] Team Providers + +------+ + | Care Driver Recruiter Name | Role | Phone | + [...] | MD [address] | [address] [place], | | | | | screening | [address] | [address] | | | | | for | [place], | [place], | | | | | malignant | [place] [address] | [place] [address] | | | | | neoplasm of | Phone: | Phone: | | | | | colon | [phone] | [phone] | | | | | Procedures | Fax: | Fax: | | | | | COLONOSCOPY | [phone] | [phone] | +--------+--------+ + + + + Encounter Details +--------+---------+ + + + | Date | Type | Department | Care Team | Description | +--------+---------+ + + + | 01/26/ | Office | [facility] | Oswaldo Streeter MD | Gastroesophageal | | 2019 | Visit | GASTROENTEROLOGY | [address] [facility] | reflux disease, | | | | [address] [facility] [address] | [address] [place] | esophagitis presence | | | | [address] [place], [place] | [place] [address] | not specified | | | | [address] | [phone] | (Primary Dx); Rectal | | | | [phone] | | bleeding; | | | | [...]
--- OUTSIDE RECORDS SUMMARY | ~2019-03-17 | XMS | Encounter Summary ---
Demographics + + + | Address | [address] | | | [place] [address] | + + + | Home Phone | | + + + | Preferred Language | Unknown | + + + | Marital Status | | + + + | Sabianism Affiliation | 1077 | + + + | Race | Unknown | + + + | Ethnic Group | Unknown | + + + Author + + + | Author | [facility] | | | and [place] | + + + | Organization | [facility] | | [...] Team Providers + +------+ + | Care Health Plan Specialist Name | Role | Phone | + [...] (Primary Dx); | | | | [address] [place], [place] | [place] [address] | Long-segment | | | | [address] | 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
--- OUTSIDE RECORDS SUMMARY | ~2019-03-17 | XMS | Encounter Summary ---
Demographics + + + | Address | [address] | | | [place] [address] | + + + | Home Phone | | + + + | Preferred Language | Unknown | + + + | Marital Status | Single | + + + | Mu-Ism Affiliation | Unknown | + + + | Race | White | + + + | Ethnic Group | Not or | + + + Author + + + | Author | [facility] | + + + | Organization | [facility] | + + + | Address | Unknown | + + + | Phone | Unavailable | + + + Support + + +---------+ + | Name | Relationship | Address | Phone | + + +---------+ + | Kayli Lundy | ECON | Unknown | | + + +---------+ + Care Team Providers + +------+ + | Care Hog Scalder Name | Role | Phone | + [...] | | | 2015 | CX | [facility] & | [address] | | | | | Healing [address] | [address] [place], | | | | | [address] Mail Code: | [place] [address] | | | | | [address] [place] [address] for | [phone] | | | | | Health and Healing, | | | | | | [address] [place] [address], | | | | | | [place] [address] | | | | | | [phone] | | | +--------+ + + + [...]
--- OUTSIDE RECORDS SUMMARY | ~2019-03-17 | XMS | Clinical Summary ---
Demographics + + + | Address | [address] | | | [place] [address] | + + + | Home Phone | | + + + | Preferred Language | Unknown | + + + | Marital Status | | + + + | Mormon Affiliation | 1077 | + + + | Race | Unknown | + + + | Ethnic Group | Unknown | + + + Author + + + | Author | [facility] | | | and [place] | + + + | Organization | [facility] | | | and [...] Team Providers + +------+ + | Care Supervisor Decorating Name | Role | Phone | + [...] automatically from request for surgery | | [id number] | + + + + + | Rectal bleeding | 01/26/2019 | + + + + + | Overview: Added automatically from request for surgery | | [id number] | + + + + + | Hematemesis, presence of nausea not specified | 01/26/2019 | + + + + + | Overview: Added automatically from request for surgery | | [id number] | + + + + + | [...] | with small inferior[facility] [place] | | showed normal LV systolic [id number]/2016- Cath showed- small and | | branch [...] small inferior-apical | | ischemiaEcho done in [facility] [place], [place] showed normal LV systolic | | [...] 02/21/2019 | PROVATION | | 2:16 PMMRN: [id number] #: [id number] of : | | | 8Admit Type: AmbulatoryAge: 68Room: [facility] 01Gender: MaleNote | | | Status: FinalizedAttending MD: Oswaldo Streeter , | | | MDProcedure: Upper GI | | | endoscopyIndications: Heartburn, Suspected esophageal | | | reflux, HematemesisProviders: Oswaldo Streeter MD, | | | Sylvia Galeas RN, Kamini Bonner | | | Whitney, Siphon Operator, Rigoberto Jones MD (Anesthesia | | | [...] the anesthesiologist | | | and the networking technician in the pre-procedure area in the [...] PMScope Out: 2:40:51 | | | PM [facility], [address] [place] [address] | | | [place] [address] | | | - Follow [...] |Scope Out: 2:40:51 PM | | | [facility], [address] [place] [address] | | | [address] | | + + ---+ + +---------+ [...] 02/21/2019 | PROVATION | | 2:15 PMMRN: [id number] #: [id number] of : | | | 1950dmit Type: AmbulatoryAge: 68Room: [facility] 01Gender: MaleNote | | | Status: FinalizedAttending MD: Oswaldo Streeter , | | | MDProcedure: ColonoscopyIndications: | | | HematocheziaProviders: Oswaldo Streeter MD, Sylvia | | | CHADWICK Galeas, Kamini Olson, | | | Siphon Operator, Rigoberto Jones MD (Anesthesia | | | [...] the anesthesiologist | | | and the networking technician in the pre-procedure area in the [...] PMScope Out: 3:05:58 PM | | | [facility], [address] [place] [address] | | | [address] | | | - Repeat colonoscopy in [...] |Scope Out: 3:05:58 PM | | | [facility], [address] [place] [address] | | | [address] | | + + ---+ + +---------+ [...] | | | is negative for organisms. RUST:[facility] FINAL PATHOLOGIC DIAGNOSIS: | [...] | | - Tubular adenoma (one fragment). JVR:[facility]:C2NR GROSS | | | [...] component was | | | performed by [employer], [address] [place] [address] | | | (Transit Coach Operator: Susan Jimenez MD; IA# [id number]). Professional | | | interpretation [facility] | | | [facility], [address] [place] [address] | | | [address] (Transit Coach Operator: Mukul Welsh M.D.). | | | Diagnostician: [...] +---------+--------+ | [employer] | VETERA | [id number] | 01/18/20 | | | Indemn | | | NS | | 19-Pre | | | ity | | | CHOICE | | sent | | | | + +--------+ +--------+ +---------+--------+ | MEDICARE | MEDICA | [id number] | 04/17/20 | [phone] | | Medica | | | RE | | 15-Pre | 5 | | re | | | PART A | | sent | | | | | | AND B | | | | | | + +--------+ +--------+ +---------+--------+ | [employer] | STATE | [id number] | 10/17/ | [phone] | | Indemn [...] | | al/Fam | | 1950 | [phone] | [place] | | | ken | | | 1 (Home) | [address] | + +--------+ +--------+ + + Advance Directives Patient has advance care planning documents on file. For more information, please contact:[facility] [place] [address]
--- OUTSIDE RECORDS SUMMARY | ~2019-03-17 | XMS | Encounter Summary ---
Demographics + + + | Address | [address] | | | [place] [address] | + + + | Home Phone | | + + + | Preferred Language | Unknown | + + + | Marital Status | | + + + | Evangelical Affiliation [...] Team Providers + +------+ + | Care Cheerleading Coach Name | Role | Phone | + [...] Trixie. | | | | | [address] [place] | [place] [address] | | | | | [address] | | | | | | [phone] | | | +--------+ + + + [...]
--- OUTSIDE RECORDS SUMMARY | ~2019-03-17 | XMS | Encounter Summary ---
Demographics + + + | Address | [address] | | | [place] [address] | + + + | Home Phone | | + + + | Preferred Language | Unknown | + + + | Marital Status | Single | + + + | Oriental Orthodox Affiliation | Unknown | + + + | Race | White | + + + | Ethnic Group | Not or | + + + Author + + + | Author | [facility] | + + + | Organization | [facility] | + + + | Address | Unknown | + + + | Phone | Unavailable | + + + Support + + +---------+ + | Name | Relationship | Address | Phone | + + +---------+ + | Kayli Lundy | ECON | Unknown | | + + +---------+ + Care Team Providers + +------+ + | Care Felt Washing Machine Tender Name | Role | Phone | + +------+ + | No Pcp Per Patient | PCP | Unavailable | + +------+ + Encounter Details +--------+ + + + + | Date | Type | Department | Care Team | Description | +--------+ + + + + | 07/23/ | Documentati | [facility] | Christopher Velasco | | | 2013 | on | [place] [facility] [address] | [address] | | | | | [address] | [address] [place], | | | | | Mailcode: [place] | [place] [address] | | | | | for Health and | [phone] | | | | | [facility] [address] | | | | | | [place], [place] | | | | | | [address] | | | | | | [phone] | | | +--------+ + + + [...]
--- OUTSIDE RECORDS SUMMARY | ~2019-03-17 | XMS | Encounter Summary ---
Demographics + + + | Address | [address] | | | [place] [address] | + + + | Home Phone | | + + + | Preferred Language | Unknown | + + + | Marital Status | Single | + + + | Druze Affiliation | Unknown | + + + | Race | White | + + + | Ethnic Group | Not or | + + + Author + + + | Author | [facility] | + + + | Organization | [facility] | + + + | Address | Unknown | + + + | Phone | Unavailable | + + + Support + + +---------+ + | Name | Relationship | Address | Phone | + + +---------+ + | Kayli Lundy | ECON | Unknown | | + + +---------+ + Care Team Providers + +------+ + | Care Public Address Systems Mechanic Name | Role | Phone | + [...] | | Review | | | | [facility] | | | | | | [address] | | | | | | Mailcode: OC2L | | | | | | [facility] | | | | | | and Healing, | | | | | | [address] | | | | | | [place], [place] | | | | | | [address] | | | | | | [phone] | | | +--------+ + + + [...]
[~2019-03-17 08:55] MED LIST: BENADRYL25 MG PO; FLOMAX0.4 MG PO; HYDROCODON-ACE1 EAC8 PO; LEVAQUIN500 MG PO; MEDROL4 MG PO; METOPROLOL SUCC25 MG PO; OXYBUTYNIN CHLOR5 MG PO; PERCOCET 5-3251 EACH PO; SEPTRA DS TABL1 EACH PO
[2019-03-17] MEDS ORDERED: PRILOSEC OTC20 MG PO (09:00)
== END 2019-03-17 09:04 | disposition home or self-care (01) ==
LOC: ED 08:55
DX: S00.06XA Insect bite (nonvenomous) of scalp, initial encounter (principal)